=== PATIENT | male | born 2000 | race Caucasian/White ===

== ENCOUNTER 2018-02-08 10:32 | Inpatient (IN) ==
[2018-02-08] MEDS ORDERED: Morphine Inj 4 MG/ML Vial IV.PUSH ONE (11:15)
--- NOTE | 2018-02-08 11:24 | ED ---
HPI General Chief Complaint: Respiratory Symptoms Stated Complaint: Medical Complaint Time Seen by Provider: 02/08/18 11:14 Source: patient Mode of arrival: ambulatory Limitations: no limitations History of Present Illness HPI narrative: The patient is a 17-year old -[place] male who presents to the emergency department after he obtained an outpatient chest x-ray for left -sided chest pain that revealed a pneumothorax. The patient does play football for [employer] and played on Thursday. The patient cannot recall any significant trauma to the left side of the chest wall at that time and went to bed Thursday night feeling well. However, the patient awakened Thursday morning and developed acute, sudden onset left-sided chest pain. The chest pain is nonradiating, sharp, worse with inspiration, and and minimally alleviated at rest. It was at home again, there was no air travel after the football game. He denies any history of previous pneumothorax or known connective tissue disorders. The patient was advised to come to the emergency department immediately by radiology for chest tube placement. MD complaint: Reports chest pain STEMI Alert: No Onset (ago): day(s) Duration: intermittent Onset: other Pain location: Reports left chest Severity: moderate Severity scale (1-10): 5 Quality: Reports sharp Pain radiation: Reports none Relieving factors: nothing Exacerbating factors: inspiration Treatments prior to arrival chest pain: Reports none Related Data Home Medications Medication Instructions Recorded Confirmed No Known Home Medications 02/08/18 02/08/18 Allergies Allergy/AdvReac Type Severity Reaction Status Date / Time Penicillins Allergy unk Verified 02/08/18 10:53 nickel AdvReac unk Verified 02/08/18 10:53 Review of Systems ROS: all other systems reviewed are negative [facility] Medical History Medical History Patient denies medical problems (Acute) Surgical History Surgical History History of repair of ACL (Acute) Social History Social History Substance History: No History of Abuse Smoking Status: Never smoker How Often Do You Have a Drink Containing Alcohol: Never Recent Travel in [facility] within the Last 8 Weeks: No Recent Out of Country Travel within the Last 8 Weeks: No Immunization History Tetanus Immunization: >5 Years Exam Narrative Exam Narrative: GENERAL: Awake, alert, pleasant 17-year-old male who appears his stated age and is in no acute respiratory distress. SKIN: Focused skin assessment warm/dry. HEAD: Atraumatic. Normocephalic. EYES: Pupils equal and round. No scleral icterus. No injection or drainage. ENT: No nasal bleeding or discharge. Mucous membranes pink and moist. NECK: Trachea midline. No JVD. CARDIOVASCULAR: Regular rate and rhythm. No murmur appreciated. Heart rate in the 90s. RESPIRATORY: No accessory muscle use. Clear to auscultation. Minimally diminished breath sounds on the left lateral chest wall. GASTROINTESTINAL: Abdomen soft, non-tender, nondistended. MUSCULOSKELETAL: No obvious deformities. No clubbing. No cyanosis. No edema. NEUROLOGICAL: Awake and alert. No obvious cranial nerve deficits. Motor grossly within normal limits. Normal speech. Nonfocal. PSYCHIATRIC: Appropriate mood and affect; insight and judgment normal. Procedures Chest Tube Chest Tube 1: Chest Tube Location: Mid-Axillary Chest Size of Tube (cm): 10 Chest Tube Procedure: Yes betadine prep Tube Sutured to Skin: Yes Sterile Dressing Applied: Yes Anesthesia: 1% Lidocaine Volume anesthetic (mL): 15 Incision made with: #11 blade [place] of Air [place]: Yes Tube Drainage: blood Amount of initial drainage (mL): 15 Post Procedure CXR?: Yes Patient Tolerated Procedure: Yes Post Procedure: sutured to skin and sterile dressing applied Procedural Sedation Indications: other (chest tube placement) ASA Class: ASA 1 Normal Healthy Patient Preparation: classroom monitor applied, pulse oximeter, capnometry used, supplemental O2 applied, suction/airway equipment at bedside and IV secured IV Propofol Dose (mgs): 100 Patient Tolerated Procedure: well Complications: none Ultrasound POC Ultrasound Procedure: I placed a 20-gauge, 1.88 inch ultrasound-guided IV in the volar aspect of the right forearm under ultrasound guidance using a linear probe. There was good blood return and the IV fluid easily. There were no obvious complications. The patient tolerated the procedure without difficulty. Course Initial Documented Vital Signs Temperature 98.8 F 02/08/18 10:38 Pulse Rate 81 02/08/18 10:38 Respiratory Rate 16 02/08/18 10:38 Blood Pressure 127/58 L 02/08/18 10:38 Pulse Oximetry 98 02/08/18 10:38 Last Documented Vital Signs Temperature 98.8 F 02/08/18 10:38 Pulse Rate 64 02/08/18 12:01 Respiratory Rate 22 02/08/18 12:01 Blood Pressure 109/56 L 02/08/18 12:01 Pulse Oximetry 99 02/08/18 12:01 Medical Decision Making MDM Narrative Medical decision making narrative: IV was established and the patient was placed on cardiac telemetry monitoring and continuous pulse oximetry monitoring. The patient's outpatient chest x-ray was evaluated, the patient did have a pneumothorax with greater than 2 cm between the apices and the lung, therefore, decision to place a pigtail catheter was made. I discussed the risk and benefits with the patient at bedside. He agrees to the procedure. The patient was placed on IV fluids and administer morphine and Zofran initially for his symptoms and then propofol for conscious sedation while the chest tube was placed. The patient underwent conscious sedation with 100 mg of propofol, respiratory and nursing staff were present at bedside. A 10 [place] pigtail catheter was placed in the lateral inferior midline of the chest wall secondary to the musculature of the young healthy individual. The pigtail went in easily , approximately 15 mL's of bleeding was noted after the initial incision with a #11 blade. The chest tube was placed to suction, chest x-ray was obtained and the lung was reinflated,, the chest tube was riding low and posterior to the heart. I discussed the patient with the radiologist, Dr. Jackman, who states the lung is reinflated and the chest tube could be Maintain As Needed as initially the lung is reinflated, may need readjustment if lung collapse is once again. Therefore, the on-call medical service was paged for admission and pulmonology was paged for consultation. I discussed the patient with Dr. Naidu who will follow the patient for pulmonology. Medical Screen Exam Complete: Yes Emergency Medical Condition: Yes Differential Diagnosis Differential Diagnosis: Differential diagnosis includes pneumothorax, hemothorax , fractured rib, connective tissue disorder. Imaging Data Radiologist's impression: Chest X-Ray 02/08/18 12:04 CONCLUSION: 1. Left-sided chest tube in the medial inferior left hemithorax with interval resolution of left-sided pneumothorax. 2. Minimal atelectasis in the left midlung. Discharge Plan Discharge Disposition Patient Disposition: 30 Still Patient Discharge Condition Condition: Stable Discharge Details Diagnosis: Pneumothorax Physicians Team ED Provider: Hung Todd Primary Care Provider: Blas Rosenthal III Attending Provider: Ilya Guerrero ED Status: Admitted Patient
[2018-02-08] MEDS: Sod Chloride 0.9% Inj 1,000 ML IV.CONT SCH ×2 (11:36→16:19)
[2018-02-08] MEDS ORDERED: Lidocaine 1% Inj 50 ML Vial ONE (11:51)
--- NOTE | 2018-02-08 12:25 | XR ---
EXAM DATE: 02/08/2018 12:04 PM EDT AGE/SEX: 17 years / Male INDICATIONS: Post left side chest tube placement. CLINICAL DATA: This is the patient's initial encounter. Patient reports that signs and symptoms have been present for 1 day and indicates a pain score of Nonresponsive. MEDICAL/SURGICAL HISTORY: None. None. COMPARISON: [facility], XR CHEST PA AND LAT, 02/08/2018. . FINDINGS: Interval placement of left-sided chest tube with tip in the medial inferior left hemithorax. Resoluti on of previously noted left-sided pneumothorax. Minimal apical opacity in the left lung consistent wi th atelectasis. Cardiomegaly mediastinal contours are stable. Remainder of the exam is unchanged. CONCLUSION: 1. Left-sided chest tube in the medial inferior left hemithorax with interval resolution of left-oscar ed pneumothorax. 2. Minimal atelectasis in the left midlung. Electronically signed by: Pa Orellana MD 02/08/2018 12:24 PM EDT
--- NOTE | 2018-02-08 12:43 | P.HPFP ---
History of Present Illness Primary Care Physician: Blas Rosenthal III, MD <Ilya Guerrero - 02/08/18 16:22> Blas Rosenthal III, MD <OpalElham N - 02/08/18 12:43> History of Present Illness: 17-year-old male presenting to the emergency department for treatment of a spontaneous tension pneumothorax. He was in his usual state of health when he woke up this morning with a sharp pain in his left chest associated with shortness of breath. Pain was worse with inhaling deeply. 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 He denies any pain while playing football or hit that caused significant pain. He went to the athletic training room this morning complaining of the shortness of breath, a stat chest x-ray showed a spontaneous tension pneumothorax and he went to the emergency department for management. <Ilya Guerrero - 02/08/18 16:22> 17 y/o M presenting to the ED with left sided cehst pain. Plays football for [employer]. Does not recall any significant trauma. Per patient history: "I had a game Thursday and played it. [place] fine after." Thursday morning, he woke up and felt a pain in his chest and shoulder. Couldn't inhale deeply at all. Went to urgent care and was told he had "a lung catching. " Was told to monitor it and come back if it worsens. Went to athletic center at school and felt winded after 5 minutes on an exercise bike, which he found unusual. Pain was returned as well, so he notified staff trainer who told him he wasn' t allowed to lift weights the rest of the afternoon. Woke up this morning and still felt the same symptoms. Contacted the team physician, who did a CXR and told patient to go to the ER. No recent air travel or diving, hx of penumothorax , or hx of lung disease. Outpatient CXR showed pneumothorax w/greater than 2 cm rim of air. Pigtail catheter was placed, followed by chest tube. CXR confirmed resolution of pneumothorax and proper placement. Patient states that his chest feels sore where the chest tube is placed but otherwise notices symptoms have resolved and he feels that he can breathe better. Received morphine x1. No family history of pneumothorax or lung disease. No smoking history. <Elham Joseph 02/08/18 14:48> - Diagnosis (1) Pneumothorax (2) Nutrition, metabolism, and development symptoms (3) DVT prophylaxis <Ilya Guerrero 02/08/18 16:22> (1) Pneumothorax (2) Nutrition, metabolism, and development symptoms (3) DVT prophylaxis <Elham Joseph 02/08/18 14:22> Inpatient Certification: I certify that the inpatient services were ordered in accordance with Medicare regulations governing the order. This includes certification that hospital inpatient services are reasonable and necessary and in the case of services not specified as inpatient-only under 42 CFR 419.22(n), that they are appropriately provided as inpatient services in accordance to with the 2-midnight benchmark under 43 CFR 412.3(e) <Ilya Guerrero 02/08/18 16:22> Review of Systems Constitutional: Denies fever(s), Denies lack of energy <Elham Joseph 14:05> Eyes: Denies blurry vision, Denies dry eyes <Elham Joseph 02/08/18 14:05> Ears, Nose, Mouth, and Throat: Denies post nasal drip, Denies sore throat < Elham Joseph 02/08/18 14:05> Cardiovascular: Denies chest pain, Denies leg swelling <Elham Joseph 14:05> Respiratory: Denies cough, Denies pain on inspiration, Denies pain with cough <Elham Joseph 02/08/18 14:05> Gastrointestinal: Denies abdominal pain, Denies vomiting <Elham Joseph 14:05> Genitourinary: Denies urinary frequency, Denies urinary urgency <Elham Joseph 02/08/18 14:05> Musculoskeletal: Denies abnormal walking, Denies limited joint movement, Denies muscle weakness <AbiElham greene 02/08/18 14:05> Neurologic: Denies frequent falls, Denies loss of vision, Denies seizure-like activity <Elham Joseph 02/08/18 14:05> Psychiatric: Denies anxiety, Denies depression <Abid,Elham N 02/08/18 14:05 > Hematologic/Lymphatic: Denies easy bleeding, Denies easy bruising <Elham Joseph 02/08/18 14:05> PMFSH - History History Provided By: Patient <Elham Joseph 02/08/18 12:43> - Medical History Medical History: Medical History (Last Updated 02/08/18 @ 10:53 by Lisha Balderas, RN) Patient denies medical problems <YolandaIlya uribe 02/08/18 16:22> Medical History (Last Updated 02/08/18 @ 10:53 by Lisha Balderas, [email or web address]) Patient denies medical problems <Elham Joseph 02/08/18 12:43> - Surgical History Surgical History: Surgical History (Last Updated 02/08/18 @ 14:04 by Elham Joseph MD, R2) History of repair of ACL <Ilya Guerrero 02/08/18 16:22> Surgical History (Last Updated 02/08/18 @ 14:04 by Elham Joseph MD, R2) History of repair of ACL <OpalElham Leticia 02/08/18 14:48> - Tobacco History Smoking Status: Never smoker <Elham Joseph 02/08/18 12:43> - Alcohol History How Often Do You Have a Drink Containing Alcohol: Never <Elham Joseph 02/08 12:43> - Substance Use History Substance History: No History of Abuse <Luz MariajcElham Kelly 02/08/18 12:43> - Travel History Recent Travel in the [place] Within the Last 8 Weeks: No <Luz MariajcElham Kelly 12:43> Recent Travel Out of the Country Within the Last 8 Weeks: No <Luz MariajcElham 02/08/18 12:43> - Immunization History Tetanus Immunization: >5 Years <Luz MariajcElham Leticia 02/08/18 12:43> Medications and Allergies Allergies Allergy/AdvReac Type Severity Reaction Status Date / Time Penicillins Allergy unk Verified 02/08/18 10:53 nickel AdvReac unk Verified 02/08/18 10:53 <Ilya Guerrero 02/08/18 16:22> Home Medications Medication Instructions Recorded Confirmed Type No Known Home Medications 02/08/18 02/08/18 History <Ilya Guerrero - 02/08/18 16:22> Active Medications: Active Medications Acetaminophen (Tylenol) 650 mg PO Q4H PRN PRN Reason: Temp > 100.4 Al Hydroxide/Mg Hydroxide (Milk Of Magnesia Liq) 30 ml PO Q12H PRN PRN Reason: Mild Constipation Albuterol (Duoneb Neb (Prn)) 1 ampul NEB Q2HR NEB PRN PRN Reason: DYSPNEA Albuterol (Duoneb Neb (Joanie)) 1 ampul NEB Q6HR NEB JOANIE Bisacodyl (Dulcolax Supp) 10 mg RECTAL DAILY PRN PRN Reason: SEVERE CONSITIPATION Sodium Chloride (Ns Inj) 1,000 mls @ 100 mls/hr IV.CONT .Q10H JOANIE Last Infusion: 02/08/18 15:32 Dose: Infused Lactulose (Lactulose Liq) 30 ml PO DAILY PRN PRN Reason: SEVERE CONSITIPATION Ondansetron HCl (Zofran Inj) 4 mg IV.PUSH Q6H PRN PRN Reason: NAUSEA OR VOMITING Sennosides (Senokot) 17.2 mg PO Q12H PRN PRN Reason: Moderate Constipation <Ilya Guerrero - 02/08/18 16:22> Active Medications Sodium Chloride (Ns Inj) 1,000 mls @ 100 mls/hr IV.CONT .Q10H JOANIE Last Admin: 02/08/18 11:36 Dose: 100 mls/hr <Elham Joseph N - 02/08/18 12:43> Exam Vital signs: Vital Signs 02/08/18 10:38 02/08/18 10:53 02/08/18 10:56 Temperature 98.8 F Pulse Rate 81 80 Respiratory Rate 16 17 Blood Pressure 127/58 L 145/77 H Pulse Oximetry 98 100 100 02/08/18 11:41 02/08/18 11:57 02/08/18 12:01 Temperature Pulse Rate 80 68 64 Respiratory Rate 18 32 H 22 Blood Pressure 137/64 121/64 109/56 L Pulse Oximetry 100 95 99 02/08/18 13:35 02/08/18 14:36 02/08/18 15:35 Temperature Pulse Rate 57 L 67 Respiratory Rate 12 16 12 Blood Pressure 140/84 136/68 Pulse Oximetry 100 100 98 Intake & Output 02/07/18 02/08/18 02/08/18 18:59 06:59 18:59 Intake Total 1000 / 1000 Balance 1000 / 1000 Weight 97.522 kg Intake: IV 1000 / 1000 NS Inj 1,000 ML @ 100 mls/hr IV 1000 / 1000 .CONT .Q10H JOANIE Rx#:[id number] Other: Weight On Admission 97.522 kg <Ilya Guerrero - 02/08/18 16:22> Vital Signs 02/08/18 10:38 02/08/18 10:53 02/08/18 10:56 Temperature 98.8 F Pulse Rate 81 80 Respiratory Rate 16 17 Blood Pressure 127/58 L 145/77 H Pulse Oximetry 98 100 100 02/08/18 11:41 02/08/18 11:57 02/08/18 12:01 Temperature Pulse Rate 80 68 64 Respiratory Rate 18 32 H 22 Blood Pressure 137/64 121/64 109/56 L Pulse Oximetry 100 95 99 Intake & Output 02/07/18 02/08/18 02/08/18 18:59 06:59 18:59 Weight 97.522 kg <Elham Joseph - 02/08/18 12:43> Narrative: General: Athletic and healthy-appearing young -[place] male CV: Regular rate and rhythm without murmur Pulmonary: Clear to auscultation bilaterally with good air movement in all lung michel. Pigtail catheter chest tube in lateral chest wall without any significant drainage or leakage. Catheter is hooked up to wall suction. Abdomen: Soft, nontender, nondistended <Ilya Guerrero - 02/08/18 16:22> GENERAL: 17 y/o young man resting in bed in no acute distress. SKIN: Cold and dry. HEAD: Atraumatic. Normocephalic. EYES: Normal EOM. ENT: No nasal bleeding or discharge. Mucous membranes pink and moist. NECK: Trachea midline. No JVD. CARDIOVASCULAR: Regular rate and rhythm. RESPIRATORY: No accessory muscle use. Clear to auscultation. Breath sounds equal bilaterally. Chest tube in place at the left side of the chest, draining < 10ml of bright red fluid. GASTROINTESTINAL: Abdomen soft, non-tender, nondistended. MUSCULOSKELETAL: Extremities without clubbing, cyanosis, or edema. No obvious deformities. NEUROLOGICAL: Awake and alert. No obvious cranial nerve deficits. Motor grossly within normal limits. PSYCHIATRIC: Appropriate mood and affect; insight and judgment normal. <Elham Joseph - 02/08/18 14:48> Results - Imaging Impressions Chest X-Ray 02/08/18 12:04 CONCLUSION: 1. Left-sided chest tube in the medial inferior left hemithorax with interval resolution of left-sided pneumothorax. 2. Minimal atelectasis in the left midlung. <Ilya Guerrero - 02/08/18 16:22> Impressions Chest X-Ray 02/08/18 12:04 CONCLUSION: 1. Left-sided chest tube in the medial inferior left hemithorax with interval resolution of left-sided pneumothorax. 2. Minimal atelectasis in the left midlung. <Elham Joseph 02/08/18 12:43> Caprini VTE Risk Assessment Caprini VTE Risk Assessment: No/Low Risk (score <= 1) <Elham Joseph - 14:48> Caprini Risk Assessment Model: Point Value = 1 Point Value = 2 Point Value = 3 Point Value = 5 Age 41-60 Minor surgery BMI > 25 kg/m2 Swollen legs Varicose veins or History of unexplained or recurrent spontaneous Oral contraceptives or hormone replacement Sepsis (< 1 month) Serious lung disease, including pneumonia (< 1 month) Abnormal pulmonary function Acute myocardial infarction Congestive heart failure (< 1 month) History of inflammatory bowel disease Medical patient at bed rest Age 61-74 Arthroscopic surgery Major open surgery (> 45 min) Laparoscopic surgery (> 45 min) Malignancy Confined to bed (> 72 hours) Immobilizing plaster cast Central venous access Age >= 75 History of VTE Family history of VTE Factor V Leiden Prothrombin [id number] Lupus anticoagulant Anticardiolipin antibodies Elevated serum homocysteine Heparin-induced thrombocytopenia Other congenital or acquired thrombophilia Stroke (< 1 month) Elective arthroplasty Hip, pelvis, or leg fracture Acute spinal cord injury (< 1 month) <Ilya Guerrero 02/08/18 16:22> Point Value = 1 Point Value = 2 Point Value = 3 Point Value = 5 Age 41-60 Minor surgery BMI > 25 kg/m2 Swollen legs Varicose veins or History of unexplained or recurrent spontaneous Oral contraceptives or hormone replacement Sepsis (< 1 month) Serious lung disease, including pneumonia (< 1 month) Abnormal pulmonary function Acute myocardial infarction Congestive heart failure (< 1 month) History of inflammatory bowel disease Medical patient at bed rest Age 61-74 Arthroscopic surgery Major open surgery (> 45 min) Laparoscopic surgery (> 45 min) Malignancy Confined to bed (> 72 hours) Immobilizing plaster cast Central venous access Age >= 75 History of VTE Family history of VTE Factor V Leiden Prothrombin [id number] Lupus anticoagulant Anticardiolipin antibodies Elevated serum homocysteine Heparin-induced thrombocytopenia Other congenital or acquired thrombophilia Stroke (< 1 month) Elective arthroplasty Hip, pelvis, or leg fracture Acute spinal cord injury (< 1 month) <Elham Joseph - 02/08/18 12:43> Prophylaxis Regimen: Total Risk Factor Score Risk Level Prophylaxis Regimen 0-1 Low Early ambulation 2 Moderate Order ONE of the following: *Sequential Compression Device (SCD) *Heparin 5000 units SQ BID 3-4 Higher Order ONE of the following medications: *Heparin 5000 units SQ TID *Enoxaparin/Lovenox 40 mg SQ daily (WT < 150 kg, CrCl > 30 mL/min) *Enoxaparin/Lovenox 30 mg SQ daily (WT < 150 kg, CrCl > 10-29 mL/min) *Enoxaparin/Lovenox 30 mg SQ BID (WT < 150 kg, CrCl > 30 mL/min) AND/OR *Sequential Compression Device (SCD) 5 or more Highest Order ONE of the following medications: *Heparin 5000 units SQ TID (Preferred with Epidurals) *Enoxaparin/Lovenox 40 mg SQ daily (WT < 150 kg, CrCl > 30 mL/min) *Enoxaparin/Lovenox 30 mg SQ daily (WT < 150 kg, CrCl > 10-29 mL/min) *Enoxaparin/Lovenox 30 mg SQ BID (WT < 150 kg, CrCl > 30 mL/min) AND *Sequential Compression Device (SCD) <Ilya Guerrero - 02/08/18 16:22> Total Risk Factor Score Risk Level Prophylaxis Regimen 0-1 Low Early ambulation 2 Moderate Order ONE of the following: *Sequential Compression Device (SCD) *Heparin 5000 units SQ BID 3-4 Higher Order ONE of the following medications: *Heparin 5000 units SQ TID *Enoxaparin/Lovenox 40 mg SQ daily (WT < 150 kg, CrCl > 30 mL/min) *Enoxaparin/Lovenox 30 mg SQ daily (WT < 150 kg, CrCl > 10-29 mL/min) *Enoxaparin/Lovenox 30 mg SQ BID (WT < 150 kg, CrCl > 30 mL/min) AND/OR *Sequential Compression Device (SCD) 5 or more Highest Order ONE of the following medications: *Heparin 5000 units SQ TID (Preferred with Epidurals) *Enoxaparin/Lovenox 40 mg SQ daily (WT < 150 kg, CrCl > 30 mL/min) *Enoxaparin/Lovenox 30 mg SQ daily (WT < 150 kg, CrCl > 10-29 mL/min) *Enoxaparin/Lovenox 30 mg SQ BID (WT < 150 kg, CrCl > 30 mL/min) AND *Sequential Compression Device (SCD) <Elham Joseph - 02/08/18 12:43> Assessment and Plan - Assessment (1) Pneumothorax Code(s): J93.9 - Pneumothorax, unspecified Status: Acute Plan: Spontaneous tension pneumothorax in a young healthy male Status post chest tube placement with subsequent resolution of pneumothorax via repeat chest x-ray Pulmonology consulted -Continue supplemental oxygen to maintain O2 saturations above 92% -Duo nebs every 6 hours +2 hours as needed for shortness of breath -Repeat chest x-ray in 24 hours (2) Nutrition, metabolism, and development symptoms Code(s): R63.8 - Other symptoms and signs concerning food and fluid intake Status: Acute (3) DVT prophylaxis Status: Acute <Ilya Guerrero - 02/08/18 16:22> (1) Pneumothorax Code(s): J93.9 - Pneumothorax, unspecified Status: Acute Plan: 1st occurrence of primary spon't pneumothorax CXR shows minimal atelactasis in the left lung but reolution of left sided pneumothorax post chest tube insertion. Pulmonology consulted con't O2 to maintain saturations above 92%. Will receive Duonebs Q6H plus 2 hrs PRN for SOB Repeat CXR after 24 hrs Consider thoracoscopy, corrie in the case of recurrence (2) Nutrition, metabolism, and development symptoms Code(s): R63.8 - Other symptoms and signs concerning food and fluid intake Status: Acute Plan: Fluids: None Electrolytes: None Nutrition: Reg diet GI prophy: None (3) DVT prophylaxis Status: Acute Plan: None indicated, encourage ambulation <Elham Joseph N - 02/08/18 14:22> - Assessment and Plan Dispo: 48-72 hrs Discussed w/ED physician Dr. Todd <Elham Joseph N - 02/08/18 14:48> <Elham Joseph N - Last Filed: 02/08/18 14:22> (1) Pneumothorax Qualifiers: Pneumothorax type: unspecified pneumothorax Qualified Code(s): J93.9 - Pneumothorax, unspecified <Ilya Guerrero - Last Filed: 02/08/18 16:22> (1) Pneumothorax Qualifiers: Pneumothorax type: unspecified pneumothorax Qualified Code(s): J93.9 - Pneumothorax, unspecified <Elham Joseph N - Last Filed: 02/08/18 14:22> (1) Pneumothorax Qualifiers: Pneumothorax type: unspecified pneumothorax Qualified Code(s): J93.9 - Pneumothorax, unspecified <Ilya Guerrero - Last Filed: 02/08/18 16:22> (1) Pneumothorax Qualifiers: Pneumothorax type: unspecified pneumothorax Qualified Code(s): J93.9 - Pneumothorax, unspecified
[2018-02-08] MEDS ORDERED: Bisacodyl 10 MG Supp RECTAL PRN (14:13)
[2018-02-08] MEDS ORDERED: Acetaminophen 325 MG Tablet PO PRN (14:13)
--- NOTE | 2018-02-08 14:15 | MB ---
cc: Jason Woodward MD DATE: 02/08/2018 HISTORY OF PRESENT ILLNESS: The patient is a 17-year-old male without a past medical history who presented to [facility] ED after he obtained an outpatient chest x-ray earlier today for left-sided chest pain that showed pneumothorax. The patient states that he played football on Thursday and he could not recall any significant trauma to the left side of his chest at the time and then when he woke up Thursday, he developed acute sudden onset left-sided chest pain, nonradiating. He denies any prior history of pneumothorax or any known connective tissue disorders. The patient does not take any medications at home. In the ER, the patient underwent a chest tube placement and chest x-ray post-procedure showed the left-sided chest tube in the medial inferior left hemithorax with interval resolution of the left-sided pneumothorax. Minimal atelectasis in the left mid lung seen. The patient is on Lortab. The patient states that his chest pain overall is much better now. He described it as a soreness type. He denies any cough or constitutional symptoms. In addition, he denies any orthopnea, PND, edema of the lower extremities and no history of GI symptoms. PAST MEDICAL HISTORY: Unremarkable. PAST SURGICAL HISTORY: Surgery on the left knee for repair of ACL. ALLERGIES: PENICILLIN AND NICKEL. SIDE EFFECTS INCLUDE RASH AND HIVES. FAMILY HISTORY: Noncontributing to present illness. MEDICATIONS AT HOME: None. SOCIAL HISTORY: Nonsmoker, nondrinker. REVIEW OF SYSTEMS: Unremarkable. PHYSICAL EXAMINATION: GENERAL: A 17-year-old male lying in bed, in no acute respiratory distress. VITAL SIGNS: Afebrile, temperature 98.8, pulse of 64, respiratory rate of 12, blood pressure 140/84, saturation 100%. HEENT: Atraumatic, normocephalic. Pupils are equal, round, reactive to light and accommodation. Extraocular muscles intact. Conjunctivae pink. Nonicteric sclerae. Oral mucosa within normal. NECK: Supple. No JVD, adenopathy or thyromegaly. Trachea in the midline. CARDIOVASCULAR: Regular rate and rhythm. Normal S1, S2. No murmurs, rubs or gallops noted. PULMONARY: Bilateral equal air entry. No rales or wheezing. ABDOMEN: Soft, nontender, nondistended, positive bowel sounds. EXTREMITIES: No cyanosis, clubbing, edema. NEUROLOGIC: No focal sensory deficit. LABORATORY DATA: Labs not performed. RADIOGRAPHIC STUDIES: Chest x-ray post-pigtail catheter insertion showed resolution of left-sided pneumothorax, left chest tube in the medial inferior left hemithorax, minimal atelectasis left mid lung. ASSESSMENT AND PLAN: 1. Left spontaneous pneumothorax, status post pigtail catheter insertion. 2. Minimal atelectasis in the left mid lung. RECOMMENDATIONS: 1. Continue with oxygen and maintain saturations above 92%. We will place on bronchodilators in the form of DuoNeb every 6 hours plus every 2 hours p.r.n. for shortness of breath. 2. The patient is status post left-sided pigtail catheter insertion with a chest x-ray post-procedure showing resolution of left-sided pneumothorax. We will continue with 20 cm wall suction and repeat a chest x-ray in 24 hours. 3. Discussed with the patient and his mother at the bedside. 4. Further recommendations will be based on hospital course. MD GENE Roy/dimitrios , 01:42 PM , 01:53 PM [email or web address]
[2018-02-09] MEDS: Sod Chloride 0.9% Inj 1,000 ML IV.CONT SCH ×3 (02:19→18:25)
--- NOTE | 2018-02-09 06:42 | XR ---
EXAM DATE: 02/09/2018 12:00 AM EDT AGE/SEX: 17 years / Male INDICATIONS: Follow up left side pneumothorax, short of breath CLINICAL DATA: This is the patient's subsequent encounter. Patient reports that signs and symptoms h ave been present for 2 days and indicates a pain score of 5/10. MEDICAL/SURGICAL HISTORY: . spontaneous pneumothorax Chest tube, left. COMPARISON: [facility] – [place]ST 1V SINGLE AP, 02/08/2018. . FINDINGS: There is a left chest tube. There is a moderate left pneumothorax measuring up to 1.8 cm seen on the left side. There does appear to be some shifting of the heart towards the right. The lungs are otherw ise clear. CONCLUSION: Moderate left pneumothorax now seen with a left-sided pigtail catheter in place. This information was relayed to the charge nurse by telephone. Electronically signed by: Papa Yuan MD 02/09/2018 6:40 AM EDT
--- NOTE | 2018-02-09 08:33 | P.PNFP ---
Subjective Interval history: Patient seen and initially examined at 7:15am this morning after receiving call from radiologist that there was a slight mediastinal shift with expansion of the L pneumothorax since last night. Pigtail catheter was placed in the ED yesterday on admission. Patient complains of minimal discomfort in the L shoulder, likely due to pleural irritation. He notes no chest pain, shortness of breath, trouble taking a deep breath, lightheadedness or dizziness. He has has O2 saturations of 96-100% overnight and is currently on 2L NC. No obvious air leak from the pigtail catheter and chest tube suction apparatus. Call out to pulmonology for recommendations. Update 7:30am: Spoke to Dr. Naidu, who is aware of patient's case, and recommended that pigtail catheter be replaced with chest tube by IR and that patient remain on 40 % of wall suction. STAT chest tube replacement by IR ordered. Nursing staff updated on plan. <Grace Robison - 02/09/18 15:39> Results - Imaging Impressions Chest CT 02/09/18 00:00 CONCLUSION: Left apical pigtail thoracostomy tube in good position with minimal residual left pneumothorax and mild left lung atelectasis. Chest Tube Insertion 02/09/18 00:00 CONCLUSION: 1. Uncomplicated left chest tube placement as above. Chest X-Ray 02/09/18 00:00 CONCLUSION: Moderate left pneumothorax now seen with a left-sided pigtail catheter in place. This information was relayed to the charge nurse by telephone. Chest X-Ray 02/09/18 09:00 CONCLUSION: Persistent and unchanged left-sided pneumothorax. Chest X-Ray 02/09/18 11:25 CONCLUSION: No pneumothorax <Ilya Guerrero - 02/09/18 20:00> Impressions Chest X-Ray 02/08/18 12:04 CONCLUSION: 1. Left-sided chest tube in the medial inferior left hemithorax with interval resolution of left-sided pneumothorax. 2. Minimal atelectasis in the left midlung. Chest X-Ray 02/09/18 00:00 CONCLUSION: Moderate left pneumothorax now seen with a left-sided pigtail catheter in place. This information was relayed to the charge nurse by telephone. <Grace Robison - 02/09/18 08:33> Physical Exam Vital signs: Vital Signs 02/09/18 00:00 02/09/18 00:30 02/09/18 03:30 Temperature 98.1 F Pulse Rate 70 91 H Respiratory Rate 18 17 Blood Pressure 116/59 L Pulse Oximetry 98 97 02/09/18 04:00 02/09/18 07:59 02/09/18 08:00 Temperature 97.9 F 98.2 F 98.2 F Pulse Rate 64 81 81 Respiratory Rate 19 18 18 Blood Pressure 118/60 139/67 139/67 Pulse Oximetry 96 99 99 02/09/18 08:45 02/09/18 11:30 02/09/18 13:14 Temperature 99.0 F 97.9 F Pulse Rate 83 98 H 61 Respiratory Rate 18 18 17 Blood Pressure 126/71 127/80 Pulse Oximetry 98 94 L 100 02/09/18 16:00 02/09/18 16:31 Temperature 98.9 F Pulse Rate 68 86 Respiratory Rate 18 18 Blood Pressure 124/67 Pulse Oximetry 99 Intake & Output 02/09/18 02/09/18 02/10/18 06:59 18:59 06:59 Intake Total 1420 / 1420 1750 / 1750 Output Total 1512 / 1512 885 / 885 Balance -92 / -92 865 / 865 Weight 98.8 kg Intake: IV 1000 / 1000 1000 / 1000 NS Inj 1,000 ML @ 100 mls/hr IV 1000 / 1000 1000 / 1000 .CONT .Q10H [facility] Rx#:[id number] Oral 420 / 420 750 / 750 Output: Urine 1500 / 1500 850 / 850 Chest Tube Drainage 35 / 35 Left Anterior 12 12 Left Upper 35 / 35 Other: # Voids 2 Date of Last Bowel Movement 02/07/18 # Bowel Movements 0 <Ilya Guerrero - 02/09/18 20:00> Vital Signs 02/08/18 10:38 02/08/18 10:53 02/08/18 10:56 Temperature 98.8 F Pulse Rate 81 80 Respiratory Rate 16 17 Blood Pressure 127/58 L 145/77 H Pulse Oximetry 98 100 100 02/08/18 11:41 02/08/18 11:57 02/08/18 12:01 Temperature Pulse Rate 80 68 64 Respiratory Rate 18 32 H 22 Blood Pressure 137/64 121/64 109/56 L Pulse Oximetry 100 95 99 02/08/18 13:35 02/08/18 14:36 02/08/18 15:35 Temperature Pulse Rate 57 L 67 Respiratory Rate 12 16 12 Blood Pressure 140/84 136/68 Pulse Oximetry 100 100 98 02/08/18 16:00 02/08/18 17:25 02/08/18 19:42 Temperature 97.9 F Pulse Rate 59 L 89 74 Respiratory Rate 17 18 18 Blood Pressure 135/79 Pulse Oximetry 99 02/08/18 19:46 02/08/18 20:00 02/09/18 00:00 Temperature 98.3 F 98.1 F Pulse Rate 66 70 Respiratory Rate 18 18 Blood Pressure 98/51 L 116/59 L Pulse Oximetry 98 98 98 02/09/18 00:30 02/09/18 03:30 02/09/18 04:00 Temperature 97.9 F Pulse Rate 91 H 64 Respiratory Rate 17 19 Blood Pressure 118/60 Pulse Oximetry 97 96 02/09/18 07:59 Temperature 98.2 F Pulse Rate 81 Respiratory Rate 18 Blood Pressure 139/67 Pulse Oximetry 99 Intake & Output 02/08/18 02/09/18 02/09/18 18:59 06:59 18:59 Intake Total 1350 / 1350 1420 / 1420 Output Total 1512 / 1512 Balance 1350 / 1350 -92 / -92 Weight 97.522 kg 98.8 kg Intake: IV 1000 / 1000 1000 / 1000 NS Inj 1,000 ML @ 100 mls/hr IV 1000 / 1000 1000 / 1000 .CONT .Q10H [facility] Rx#:[id number] Oral 350 / 350 420 / 420 Output: Urine 1500 / 1500 Chest Tube Drainage Left Anterior Other: # Voids 2 2 Date of Last Bowel Movement 02/07/18 # Bowel Movements 0 Weight On Admission 97.522 kg <Grace Robison 02/09/18 08:33> Narrative: General: 17 year old, healthy-appearing male in no acute respiratory distress. CV: Regular rate and rhythm without murmur Pulmonary: Clear to auscultation bilaterally. Pigtail catheter chest tube in lateral chest wall. No notable bleeding, drainage or leakage. Catheter is hooked up to wall suction. Abdomen: Soft, nontender, nondistended MSK: No leg edema or calf tenderness. <Grace Robison 02/09/18 15:39> Assessment and Plan - Assessment (1) Pneumothorax Code(s): J93.9 - Pneumothorax, unspecified Status: Acute (2) Nutrition, metabolism, and development symptoms Code(s): R63.8 - Other symptoms and signs concerning food and fluid intake Status: Acute (3) DVT prophylaxis Status: Acute <Ilya Guerrero - 02/09/18 20:00> (1) Pneumothorax Code(s): J93.9 - Pneumothorax, unspecified Status: Acute Plan: Spontaneous tension pneumothorax in a young healthy male Status post chest tube placement with subsequent resolution of pneumothorax via repeat chest x-ray IR to place pigtail catheter with chest tube versus second chest tube this morning. Patient currently awaiting procedure. Pulmonology consulted -Continue supplemental oxygen to maintain O2 saturations above 92% -Duo nebs every 6 hours +2 hours as needed for shortness of breath -Repeat chest x-ray in 24 hours (2) Nutrition, metabolism, and development symptoms Code(s): R63.8 - Other symptoms and signs concerning food and fluid intake Status: Acute Plan: Fluids: None Electrolytes: None Nutrition: Reg diet GI prophy: None (3) DVT prophylaxis Status: Acute Plan: None indicated, encourage ambulation <Grace Robison - 02/09/18 15:35> - Attending Attestation Pt. examined and case discussed with resident physicians. I have read the above note and agree with the assessment and plan as discussed with me. I was involved in all medical decision making for this patient. Ilya Guerrero MD <Ilya Guerrero - 02/09/18 20:00> <Grace Robison - Last Filed: 02/09/18 15:35> (1) Pneumothorax Qualifiers: Pneumothorax type: unspecified pneumothorax Qualified Code(s): J93.9 - Pneumothorax, unspecified <Ilya Guerrero - Last Filed: 02/09/18 20:00> (1) Pneumothorax Qualifiers: Pneumothorax type: unspecified pneumothorax Qualified Code(s): J93.9 - Pneumothorax, unspecified <Grace Robison - Last Filed: 02/09/18 15:35> (1) Pneumothorax Qualifiers: Pneumothorax type: unspecified pneumothorax Qualified Code(s): J93.9 - Pneumothorax, unspecified <Ilya Guerrero - Last Filed: 02/09/18 20:00> (1) Pneumothorax Qualifiers: Pneumothorax type: unspecified pneumothorax Qualified Code(s): J93.9 - Pneumothorax, unspecified
--- NOTE | 2018-02-09 09:20 | P.PNPL ---
Subjective Interval history: Patient had CXR this morning showed left PTX measuring up to 1.8 cm seen on the left side with a left-sided pigtail catheter in place He denies any worsening SOB. c/o mild CP soreness like from insertion site. Afebrile. Physical Exam Vital signs: Vital Signs 02/08/18 10:38 02/08/18 10:53 02/08/18 10:56 Temperature 98.8 F Pulse Rate 81 80 Respiratory Rate 16 17 Blood Pressure 127/58 L 145/77 H Pulse Oximetry 98 100 100 02/08/18 11:41 02/08/18 11:57 02/08/18 12:01 Temperature Pulse Rate 80 68 64 Respiratory Rate 18 32 H 22 Blood Pressure 137/64 121/64 109/56 L Pulse Oximetry 100 95 99 02/08/18 13:35 02/08/18 14:36 02/08/18 15:35 Temperature Pulse Rate 57 L 67 Respiratory Rate 12 16 12 Blood Pressure 140/84 136/68 Pulse Oximetry 100 100 98 02/08/18 16:00 02/08/18 17:25 02/08/18 19:42 Temperature 97.9 F Pulse Rate 59 L 89 74 Respiratory Rate 17 18 18 Blood Pressure 135/79 Pulse Oximetry 99 02/08/18 19:46 02/08/18 20:00 02/09/18 00:00 Temperature 98.3 F 98.1 F Pulse Rate 66 70 Respiratory Rate 18 18 Blood Pressure 98/51 L 116/59 L Pulse Oximetry 98 98 98 02/09/18 00:30 02/09/18 03:30 02/09/18 04:00 Temperature 97.9 F Pulse Rate 91 H 64 Respiratory Rate 17 19 Blood Pressure 118/60 Pulse Oximetry 97 96 02/09/18 07:59 02/09/18 08:45 Temperature 98.2 F Pulse Rate 81 83 Respiratory Rate 18 18 Blood Pressure 139/67 Pulse Oximetry 99 98 Intake & Output 02/08/18 02/09/18 02/09/18 18:59 06:59 18:59 Intake Total 1350 / 1350 1420 / 1420 Output Total 1512 / 1512 Balance 1350 / 1350 -92 / -92 Weight 97.522 kg 98.8 kg Intake: IV 1000 / 1000 1000 / 1000 NS Inj 1,000 ML @ 100 mls/hr IV 1000 / 1000 1000 / 1000 .CONT .Q10H [facility] Rx#:[id number] Oral 350 / 350 420 / 420 Output: Urine 1500 / 1500 Chest Tube Drainage Left Anterior Other: # Voids 2 2 Date of Last Bowel Movement 02/07/18 # Bowel Movements 0 Weight On Admission 97.522 kg - Constitutional no acute distress - Routine HEENT Exam Head: Present: normocephalic, atraumatic Eye: Present: EOMI, PERRL, normal accommodation, conjunctivae pink ENT: Present: mucous membranes moist - Routine Neck Exam Present: supple, full ROM, trachea midline - Routine Respiratory Exam Present: CTA bilaterally - Routine Cardiovascular Exam Present: RRR, S1, S2 - Routine Abdominal Exam Present: soft, normoactive bowel sounds - Routine Extremities Exam Present: full ROM, pulses intact - Routine Skin Exam Present: intact - Routine Neurological Exam Present: alert, oriented X3, CN II-XII intact, moving all extremities - Routine Psychiatric Exam Present: normal affect, cooperative Assessment and Plan - Plan Imp: 1. Recurrent Left pneumothorax, status post pigtail catheter insertion. 2. Minimal atelectasis in the left mid lung. Plan Continue with oxygen and maintain sats>92%. Bronchodilators. CXR this morning showed 1.8 cm left PTX with pigtail catheter in place Increase to 40cm wall suction, IR eval discussed with Dr. Donahue (IR) plan for possible a 2nd CT insertion. Will get CT chest for further eval pulm parenchyma. Consult CTS. Discussed with patient and his mother and updated them .
--- NOTE | 2018-02-09 09:41 | XR ---
EXAM DATE: 02/09/2018 9:00 AM EDT AGE/SEX: 17 years / Male INDICATIONS: Pneumothorax. CLINICAL DATA: This is the patient's subsequent encounter. Patient reports that signs and symptoms h ave been present for 2 days and indicates a pain score of 4/10. MEDICAL/SURGICAL HISTORY: None. Chest tube, left. COMPARISON: [facility] – [place], CHEST 1V SINGLE AP, 02/09/2018. . FINDINGS: A single frontal expiratory view of the chest was performed. A persistent moderate-sized pneumothorax despite left subpulmonic chest tube on 40 cm of water. No midline shift. Right lung is clear. Heart is normal in size. CONCLUSION: Persistent and unchanged left-sided pneumothorax. Electronically signed by: Dave Resendez MD 02/09/2018 9:40 AM EDT
[2018-02-09] MEDS ORDERED: fentaNYL Citrate Inj 250 MCG/5 ML Ampul ONE (10:28)
--- NOTE | 2018-02-09 11:28 | P.RAD ---
Post Procedure Progress Note - Pre Procedure Diagnosis (1) Pneumothorax - Post Procedure Diagnosis (1) Pneumothorax - Procedure Information Procedure Date: 02/09/18 Supervising Radiologist: Dave Resendez Jr, MD Proceduralist/Assist: Willy Grubbs Estimated blood loss (mL): 0 Anesthesia: Conscious Sedation - Plan of Activity Patient to Unit: [facility]OPU Patient Condition: Good See PACS Report for procedural detail/treatment. Drainage Procedure Fluoroscopy left Chest Tube Non-Tunneled Placement Drainage: Pleurovac Findings: Persistent PTX despite single subpulmonic chest tube. Placed new tube in left apex.
--- NOTE | 2018-02-09 12:10 | XR ---
EXAM DATE: 02/09/2018 11:25 AM EDT AGE/SEX: 17 years / Male INDICATIONS: Evaluate pneumothorax. Chest tube placement. CLINICAL DATA: This is the patient's subsequent encounter. Patient reports that signs and symptoms h ave been present for 1 day and indicates a pain score of 6/10. MEDICAL/SURGICAL HISTORY: None. None. [place] [facility] [place], [place]. . FINDINGS: Interval placement of a left apical pigtail thoracostomy tube with resolution of pneumothorax.Lungs a re focally clear. No pleural effusion evident. Cardiac contours are stable. CONCLUSION: No pneumothorax Electronically signed by: Papa Landry MD 02/09/2018 12:09 PM EDT
--- NOTE | 2018-02-09 12:21 | IR ---
EXAM DATE: 02/09/2018 12:00 AM EDT AGE/SEX: 17 years / Male INDICATIONS: Patient has persistent left sided spontaneous pneumothorax despite left subpulmonic meryl st tube. New left-sided chest tube placement requested. CLINICAL DATA: This is the patient's subsequent encounter. Patient reports that signs and symptoms h ave been present for 2 days and indicates a pain score of 4/10. MEDICAL/SURGICAL HISTORY: . Pneumothorax left side. . Left knee ACL repair. COMPARISON: No prior exams available for comparison. FLUORO TIME (min): 1.13 IMAGE SERIES: 1 ACCESS SITE: SEDATION TIME (min): 30 MEDICATION(S): 2.5 mg midazolam (Versed) IV 125 mcg fentanyl (Sublimaze) IV DEVICE(S): 10 Mongolian non-locking catheter Paradis drainage catheter. . . PROCEDURE: 1. Fluoroscopically guided chest tube placement. 2. Conscious sedation with continuous EKG and oximetry monitoring. The risks, benefits and alternatives to the procedure were explained and verbal and written consent w as obtained. The site was prepped in sterile fashion. Full sterile technique was used, including ca p, mask, sterile gloves and gown and a large sterile sheet. Hand hygiene and 2% chlorhexidine and/or betadine/alcohol prep was utilized per protocol for cutaneous antisepsis. The skin and subcutaneous tissues were infiltrated with local anesthetic solution. With fluoroscopic guidance the chest was punctured between the first and second interspace and the pr escribed catheter was placed in the lung apex. Wall suction was applied. Post procedure images demon strate satisfactory position of the tube. The catheter was sutured in place and a Percu-Stay was joyce lied. Conscious sedation was performed with the prescribed dosages and duration as above in the presence of an independent trained radiology nurse to assist in the monitoring of the patient. EKG and oximetry remained stable throughout the procedure. The patient tolerated the procedure well and there were n o complications. The patient was sent to post anesthesia recovery in stable condition. CONCLUSION: 1. Uncomplicated left chest tube placement as above. Electronically signed by: Dave Resendez MD 02/09/2018 12:20 PM EDT
[2018-02-09] MEDS ORDERED: Naloxone Inj 0.4 MG/ML Vial IV.PUSH PRN (13:29)
[2018-02-09] MEDS ORDERED: Sodium Chloride 0.9% 2 ML Flush PRN IV.FLUSH (13:37)
[2018-02-09] MEDS ORDERED: Morphine Sulfate Inj 2 MG/ML Vial IV.PUSH PRN (13:45)
--- NOTE | 2018-02-09 15:15 | CT ---
EXAM DATE: 02/09/2018 2:08 PM EDT AGE/SEX: 17 years / Male INDICATIONS: Evaluate pneumothorax. CLINICAL DATA: This is the patient's subsequent encounter. Patient reports that signs and symptoms h ave been present for 3 days and indicates a pain score of 4/10. MEDICAL/SURGICAL HISTORY: None. None. RADIATION DOSE: 14.76 CTDI (mGy) COMPARISON: . TECHNIQUE: Multiple contiguous axial images were obtained through the chest without contrast. Image s were obtained in suspended respiration using multiple row detector helical technique. Using automa jhony exposure control and adjustment of the mA and/or kV according to patient size, radiation dose was kept as low as reasonably achievable to obtain optimal diagnostic quality images. DICOM format imag e data is available electronically for review and comparison. FINDINGS: Lungs: Left apical pigtail thoracostomy tube is present. There is minimal residual anteromedial pneu mothorax. There is slight posterior lung atelectasis on the left. No large blebs or bulla are clearly appreciated. Right lung is clear and well inflated. Mediastinum: There is good visualization of the great vessels of the middle mediastinum. No evidenc e of mediastinal or hilar adenopathy/mass. Pleurae: No evidence of focal thickening or pleural effusion. Axillae: Unremarkable. Bony Structures: Unremarkable. Miscellaneous: The examination was extended to include the upper abdomen, and both adrenal glands ar e normal in size and configuration. CONCLUSION: Left apical pigtail thoracostomy tube in good position with minimal residual left pneumothorax and mi ld left lung atelectasis. Electronically signed by: Papa Landry MD 02/09/2018 3:14 PM EDT
[2018-02-09] MEDS ORDERED: Haloperidol Inj 5 MG/ML Ampul IM PRN (16:31)
--- NOTE | 2018-02-09 16:41 | MB ---
cc: Lay Hampton MD DATE: 02/09/2018 HISTORY OF PRESENT ILLNESS: A 17-year-old patient who is a [employer] student. 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 Apparently played a football game Thursday and then woke up Thursday morning with sharp left-sided chest pain, nonradiating, shortness of breath. Went to an urgent care where they sent him to the emergency department where he was found to have a left-sided pneumothorax. The patient underwent chest tube placement to the left lateral chest wall with interval resolution of the left-sided pneumothorax. The patient then underwent an x-ray this morning, which showed persistent unchanged left-sided pneumothorax despite 40 cm of suction. There was no midline shift. The patient had a second chest tube placed in the left apex with resolution of the pneumothorax. He also had a chest CT while undergoing the first chest tube placement. There was no evidence of mediastinal or hilar adenopathy. No evidence of focal thickening or pleural effusion. We were consulted due to persistent pneumothorax prior to the second chest tube placement. PAST MEDICAL HISTORY: The patient has no past medical history. PAST SURGICAL HISTORY: Include left knee repair for ACL. ALLERGIES: HE IS ALLERGIC TO PENICILLIN AND NICKEL. MEDICATIONS: Takes no home medications. FAMILY HISTORY: Unremarkable. No history of prior pneumothorax in the family. SOCIAL HISTORY: Does play contact football. His last flight was approximately 2 weeks ago with his football team. REVIEW OF SYSTEMS: GENERAL: No night sweats, fever, heat and cold intolerance. SKIN: No psoriasis, itching or hives. HEENT: No blurred vision, hearing loss. RESPIRATORY: Positive for recent cough, shortness of breath. CARDIOVASCULAR: Recent left-sided chest pain. GASTROINTESTINAL: No diarrhea or vomiting. GENITOURINARY: No burning, frequency, urgency. CENTRAL NERVOUS SYSTEM: No history of TIA, CVA, seizure disorder. ENDOCRINOLOGY: No diabetes or hypothyroidism. PHYSICAL EXAMINATION: VITAL SIGNS: Blood pressure 130/80, heart rate of 60, afebrile. GENERAL: The patient is awake, alert. Complaining of some left upper chest wall discomfort. He is status post second chest tube placement. HEENT: Head is normocephalic, atraumatic. Pupils equal and reactive. Oral mucosa pink, moist. NECK: Supple. No JVD. HEART: Sounds S1, S2. Regular rate and rhythm. No audible rubs, murmurs, or gallops. LUNGS: Diminished in the bases, otherwise clear to auscultation. No wheezes, rales or rhonchi. ABDOMEN: Soft, nontender. No masses or organomegaly. EXTREMITIES: No cyanosis, clubbing, or edema. LABORATORY DATA: No active lab work. RADIOLOGICAL EXAMS: As above. IMPRESSION: Left spontaneous pneumothorax. No history of connective tissue disorder. Status post left lateral chest tube placement. Despite the increase to 40 cm, he had recurrence of the left pneumothorax, now status post second pigtail catheter placement left apex. CT scan will be evaluated by Dr. Lay Hampton and evaluation for possible need for video-assisted thoracoscopy if no improvement at this time. Dictated by JENNY Gil Patient examined and chart reviewed on 02/09/2018. Agree with above. Will obtain a chest CT without contrast to determine if he has any apical blebs contributing to his spontaneous pneumothorax. If that is the case, then he may benefit from thoracoscopic resection of the blebs to prevent a recurrent episode. Otherwise should his pneumothorax resolve with simple catheter drainage and the CT does not demonstrate any blebs, it may be reasonable to go with a conservative nonsurgical option. Will discuss further with patient following results of the chest CT. Thank you for allowing me to participate in the care of this patient. MD MY Shultz/tiffany , 04:03 PM , 04:13 PM REJI
[2018-02-09] MEDS: oxyCODONE/Acetaminophen 10/325 Tablet PO PRN (20:16)
[2018-02-09] MEDS: Sodium Chloride 0.9% 2 ML Flush BID IV.FLUSH SCH (20:17)
[2018-02-10] MEDS: Sod Chloride 0.9% Inj 1,000 ML IV.CONT SCH ×2 (00:26→03:15)
--- NOTE | 2018-02-10 09:09 | P.PNPL ---
Subjective Interval history: Patient s/p 2nd chest tube placement by IR yesterday, CT chest showed Left apical pigtail thoracostomy tube in good position with minimal residual left pneumothorax and mild left lung atelectasis. Patient denies any CP/SOB. Physical Exam Vital signs: Vital Signs 02/09/18 11:30 02/09/18 13:14 02/09/18 16:00 Temperature 99.0 F 97.9 F 98.9 F Pulse Rate 98 H 61 68 Respiratory Rate 18 17 18 Blood Pressure 126/71 127/80 124/67 Pulse Oximetry 94 L 100 99 02/09/18 16:31 02/09/18 20:00 02/09/18 20:46 Temperature 99.9 F H Pulse Rate 86 72 Respiratory Rate 18 22 20 Blood Pressure 124/61 Pulse Oximetry 94 L 02/09/18 21:06 02/10/18 00:00 02/10/18 03:16 Temperature 98.3 F Pulse Rate 78 74 70 Respiratory Rate 14 20 15 Blood Pressure 132/59 L Pulse Oximetry 95 02/10/18 04:00 02/10/18 06:04 02/10/18 08:00 Temperature 98.6 F 98.0 F Pulse Rate 62 73 Respiratory Rate 20 20 19 Blood Pressure 133/77 139/77 Pulse Oximetry 98 97 Intake & Output 02/09/18 02/10/18 02/10/18 18:59 06:59 18:59 Intake Total 1750 / 1750 1360 / 1360 Output Total 885 / 885 650 / 650 Balance 865 / 865 710 / 710 Weight 98.5 kg Intake: IV 1000 / 1000 1000 / 1000 NS Inj 1,000 ML @ 100 mls/hr IV 1000 / 1000 1000 / 1000 .CONT .Q10H [facility] Rx#:[id number] Oral 750 / 750 360 / 360 Output: Urine 850 / 850 650 / 650 Chest Tube Drainage 35 / 35 0 / 0 Left Anterior 0 / 0 Left Upper 35 / 35 0 / 0 Other: # Bowel Movements 0 - Constitutional no acute distress - Routine HEENT Exam Head: Present: normocephalic, atraumatic Eye: Present: EOMI, PERRL, normal accommodation, conjunctivae pink ENT: Present: mucous membranes moist - Routine Neck Exam Present: supple, full ROM, trachea midline - Routine Respiratory Exam Present: CTA bilaterally - Routine Cardiovascular Exam Present: RRR, S1, S2 - Routine Abdominal Exam Present: soft, normoactive bowel sounds - Routine Extremities Exam Present: full ROM - Routine Skin Exam Present: intact, dry - Routine Neurological Exam Present: alert, oriented X3, CN II-XII intact - Routine Psychiatric Exam Present: normal affect, normal thought process Assessment and Plan - Plan Imp: 1. Recurrent Left pneumothorax, 2. Minimal atelectasis in the left mid lung. Plan Continue with oxygen and maintain sats>92%. Bronchodilators. Patient s/p 2nd CT insertion by IR 02/09 continue with 20 cm wall suction. Check CXR CT chest showed Left apical pigtail thoracostomy tube in good position with minimal residual left pneumothorax and mild left lung atelectasis. CTS is following-Dr. Hampton , possible need for VATS if no improvement. Continue treatment plan Discussed with patient's mother.
--- NOTE | 2018-02-10 09:30 | XR ---
EXAM DATE: 02/10/2018 12:00 AM EDT AGE/SEX: 17 years / Male INDICATIONS: Soreness left chest near chest tubes. Evaluate for pneumothorax. CLINICAL DATA: This is the patient's subsequent encounter. Patient reports that signs and symptoms h ave been present for 2 days and indicates a pain score of 1/10. MEDICAL/SURGICAL HISTORY: None. . Two left chest tubes. [place] [facility] [place]. . FINDINGS: Interval placement of left apical chest tube with stable left inferior chest tube. No significant res idual pneumothorax. Lungs are clear. Cardiomediastinal contours are within normal limits. Remainder o f the exam is unchanged. CONCLUSION: 1. Well-positioned new left apical chest tube without significant pneumothorax. Electronically signed by: Pa Orellana MD 02/10/2018 9:28 AM EDT
--- NOTE | 2018-02-10 10:13 | P.PNFP ---
Subjective Interval history: Patient seen and examined this morning. He denies shortness of breath or chest pain at this time, aside from the surgical sites. He notes no bleeding, drainage , redness or swelling at the insertion sites of the chest tubes. He does note mild soreness at the prior surgical sites. Denies fever, chills, nausea, vomiting, abdominal pain, leg swelling or leg edema. <Grace Robison - 02/10/18 13:48> Results - Imaging Impressions Chest X-Ray 02/10/18 00:00 CONCLUSION: 1. Well-positioned new left apical chest tube without significant pneumothorax. Chest X-Ray 02/10/18 11:25 CONCLUSION: 1. No interval change. 2. Stable left-sided chest tubes without pneumothorax. <Ilya Guerrero - 02/10/18 16:15> Impressions Chest CT 02/09/18 00:00 CONCLUSION: Left apical pigtail thoracostomy tube in good position with minimal residual left pneumothorax and mild left lung atelectasis. Chest Tube Insertion 02/09/18 00:00 CONCLUSION: 1. Uncomplicated left chest tube placement as above. Chest X-Ray 02/09/18 11:25 CONCLUSION: No pneumothorax Chest X-Ray 02/10/18 00:00 CONCLUSION: 1. Well-positioned new left apical chest tube without significant pneumothorax. <Grace Robison - 02/10/18 10:13> Physical Exam Vital signs: Vital Signs 02/09/18 16:31 02/09/18 20:00 02/09/18 20:46 Temperature 99.9 F H Pulse Rate 86 72 Respiratory Rate 18 22 20 Blood Pressure 124/61 Pulse Oximetry 94 L 02/09/18 21:06 02/10/18 00:00 02/10/18 03:16 Temperature 98.3 F Pulse Rate 78 74 70 Respiratory Rate 14 20 15 Blood Pressure 132/59 L Pulse Oximetry 95 02/10/18 04:00 02/10/18 06:04 02/10/18 08:00 Temperature 98.6 F 98.0 F Pulse Rate 62 73 Respiratory Rate 20 20 19 Blood Pressure 133/77 139/77 Pulse Oximetry 98 97 02/10/18 10:32 02/10/18 10:33 02/10/18 12:00 Temperature 98.7 F Pulse Rate 70 68 Respiratory Rate 16 17 Blood Pressure 155/73 H Pulse Oximetry 96 97 02/10/18 15:37 02/10/18 16:00 Temperature 98.5 F Pulse Rate 77 77 Respiratory Rate 18 17 Blood Pressure 139/77 Pulse Oximetry 99 96 Intake & Output 02/09/18 02/10/18 02/10/18 18:59 06:59 18:59 Intake Total 1750 / 1750 1360 / 1360 1974 Output Total 885 / 885 650 / 650 Balance 865 / 865 710 / 710 1974 Weight 98.5 kg Intake: IV 1000 / 1000 1000 / 1000 1974 NS Inj 1,000 ML @ 100 mls/hr IV 1000 / 1000 1000 / 1000 1974 .CONT .Q10H BERNARDA Rx#:[id number] Oral 750 / 750 360 / 360 Output: Urine 850 / 850 650 / 650 Chest Tube Drainage 35 / 35 0 / 0 Left Anterior 0 / 0 Left Upper 35 / 35 0 / 0 Other: # Bowel Movements 0 <Ilya Guerrero - 02/10/18 16:15> Vital Signs 02/09/18 11:30 02/09/18 13:14 02/09/18 16:00 Temperature 99.0 F 97.9 F 98.9 F Pulse Rate 98 H 61 68 Respiratory Rate 18 17 18 Blood Pressure 126/71 127/80 124/67 Pulse Oximetry 94 L 100 99 02/09/18 16:31 02/09/18 20:00 02/09/18 20:46 Temperature 99.9 F H Pulse Rate 86 72 Respiratory Rate 18 22 20 Blood Pressure 124/61 Pulse Oximetry 94 L 02/09/18 21:06 02/10/18 00:00 02/10/18 03:16 Temperature 98.3 F Pulse Rate 78 74 70 Respiratory Rate 14 20 15 Blood Pressure 132/59 L Pulse Oximetry 95 02/10/18 04:00 02/10/18 06:04 02/10/18 08:00 Temperature 98.6 F 98.0 F Pulse Rate 62 73 Respiratory Rate 20 20 19 Blood Pressure 133/77 139/77 Pulse Oximetry 98 97 Intake & Output 02/09/18 02/10/18 02/10/18 18:59 06:59 18:59 Intake Total 1750 / 1750 1360 / 1360 Output Total 885 / 885 650 / 650 Balance 865 / 865 710 / 710 Weight 98.5 kg Intake: IV 1000 / 1000 1000 / 1000 NS Inj 1,000 ML @ 100 mls/hr IV 1000 / 1000 1000 / 1000 .CONT .Q10H BERNARDA Rx#:[id number] Oral 750 / 750 360 / 360 Output: Urine 850 / 850 650 / 650 Chest Tube Drainage 35 / 35 0 / 0 Left Anterior 0 / 0 Left Upper 35 / 35 0 / 0 Other: # Bowel Movements 0 <Grace Robison - 02/10/18 10:13> Narrative: General: 17 year old, healthy-appearing male in no acute respiratory distress. CV: Regular rate and rhythm without murmur Pulmonary: Clear to auscultation bilaterally. Pigtail catheter chest tube in lateral chest wall and chest tube to anterolateral chest wall on left. No notable bleeding, drainage or leakage. Both chest tubes are hooked up to wall suction. Abdomen: Soft, nontender, nondistended MSK: No leg edema or calf tenderness. <Grace Robison - 02/10/18 13:48> Assessment and Plan - Assessment (1) Pneumothorax Code(s): J93.9 - Pneumothorax, unspecified Status: Acute (2) Nutrition, metabolism, and development symptoms Code(s): R63.8 - Other symptoms and signs concerning food and fluid intake Status: Acute (3) DVT prophylaxis Status: Acute <Ilya Guerrero - 02/10/18 16:15> (1) Pneumothorax Code(s): J93.9 - Pneumothorax, unspecified Status: Acute Plan: Spontaneous tension pneumothorax in a young healthy male s/p pigtail catheter placement with subsequent resolution of pneumothorax via repeat chest x-ray on 02/08. IR placed second chest tube on 02/09. Pulmonology consulted -Continue supplemental oxygen to maintain O2 saturations above 92% -Duo nebs every 6 hours +2 hours as needed for shortness of breath -Repeat chest x-ray in 24 hours IR consulted for placement of chest tube on 02/09. Good placement per CXR/CT chest on 02/09. CT surgery consulted 02/09: Ordered CT chest which showed no re-accumulation of PTX following second chest tube placement. Will continue to follow. Plan for VATS if patients shows no improvement. (2) Nutrition, metabolism, and development symptoms Code(s): R63.8 - Other symptoms and signs concerning food and fluid intake Status: Acute Plan: Fluids: None Electrolytes: None Nutrition: Reg diet GI prophy: None (3) DVT prophylaxis Status: Acute Plan: None indicated, encourage ambulation <Grace Robison - 02/10/18 13:45> - Attending Attestation Patient case discussed with resident physicians I have independently examined the patient I have read the above note and agree with the assessment and plan as discussed with me I was involved in all medical decision making for this patient Case was discussed with Dr. Hampton who feels that there may be a small apical bleb on the left lung. He recommends a VATS procedure for definitive treatment. I had a long discussion with the patient and family who are in agreement. Dr. Hampton was notified for likely procedure tomorrow Ilya Guerrero MD <Ilya Guerrero - 02/10/18 16:15> <Grace Robison B - Last Filed: 02/10/18 13:45> (1) Pneumothorax Qualifiers: Pneumothorax type: unspecified pneumothorax Qualified Code(s): J93.9 - Pneumothorax, unspecified <Ilya Guerrero - Last Filed: 02/10/18 16:15> (1) Pneumothorax Qualifiers: Pneumothorax type: unspecified pneumothorax Qualified Code(s): J93.9 - Pneumothorax, unspecified <EyrnGrace ralph - Last Filed: 02/10/18 13:45> (1) Pneumothorax Qualifiers: Pneumothorax type: unspecified pneumothorax Qualified Code(s): J93.9 - Pneumothorax, unspecified <Ilya Guerrero - Last Filed: 02/10/18 16:15> (1) Pneumothorax Qualifiers: Pneumothorax type: unspecified pneumothorax Qualified Code(s): J93.9 - Pneumothorax, unspecified
--- NOTE | 2018-02-10 11:49 | XR ---
EXAM DATE: 02/10/2018 11:25 AM EDT AGE/SEX: 17 years / Male INDICATIONS: Evaluate for Pneumothorax. Patient complains of chest pain at site of chest tubes. CLINICAL DATA: This is the patient's subsequent encounter. Patient reports that signs and symptoms h ave been present for 2 days and indicates a pain score of 3/10. MEDICAL/SURGICAL HISTORY: . Patient states he had collided with someone playing football and th e next day he started not feeling well. None. COMPARISON: [facility], CHEST 1V SINGLE AP, 02/10/2018. . FINDINGS: Stable chest tubes in the apex and inferior left hemithorax. No significant pneumothorax. Remainder o f the exam is unchanged. CONCLUSION: 1. No interval change. 2. Stable left-sided chest tubes without pneumothorax. Electronically signed by: Pa Orellana MD 02/10/2018 11:47 AM EDT
[2018-02-10] MEDS: Sodium Chloride 0.9% 2 ML Flush BID IV.FLUSH SCH (12:58)
[2018-02-10] MEDS ORDERED: Vancomycin Inj 1,250 MG in Sodium Chlor 0.9% Inj 250 ML IV.SIG SCH (15:00)
[2018-02-10] MEDS ORDERED: Chlorhexidine 4% Topical 120 APPLIC/120 ML Bottle TOPICAL SCH (16:00)
[2018-02-10 19:18] LABS: INR 1.1 Ratio; Prothrombin Time 11.4 sec (9.8-11.6)
[2018-02-10 23:48] LABS: Baso % (Auto) 0.7 % (0.0-2.0); Eos # (Auto) 0.1 th/mm3 (0.0-0.4); Hematocrit 46.5 % (39.0-51.0); Hemoglobin 15.9 gm/dL (13.0-17.0); Lymph # (Auto) 1.7 th/mm3 (1.0-4.8); Mean Corpuscular HGB Conc 34.1 % (32.0-36.0); Mean Corpuscular Hemoglobin 31.1 pg (27.0-34.0); Mean Corpuscular Volume 91.1 fL (80.0-100.0); Mean Platelet Volume 9.1 fL (7.0-11.0); Mono # (Auto) 0.8 th/mm3 (0.0-0.9); Mono % (Auto) 15.4 % (0.0-8.0); Neut # (Auto) 2.4 th/mm3 (1.8-7.7); Neut % (Auto) 47.9 % (16.0-70.0); Platelet Count 200 th/mm3 (150-450); Red Blood Count 5.11 mil/mm3 (4.50-5.90); Red Cell Distribution Width 13.8 % (11.6-17.2)
[2018-02-11 00:11] LABS: Calcium 8.8 mg/dL (8.5-10.1); Carbon Dioxide 26.7 meq/L (21.0-32.0)
--- NOTE | 2018-02-11 07:00 | XR ---
EXAM DATE: 02/11/2018 12:00 AM EDT AGE/SEX: 17 years / Male INDICATIONS: Short of breath, pain left chest at chest tube sites CLINICAL DATA: This is the patient's subsequent encounter. Patient reports that signs and symptoms h ave been present for 4 - 6 days and indicates a pain score of 6/10. MEDICAL/SURGICAL HISTORY: . pneumothorax Chest tube, left. shielded COMPARISON: [facility] – [place], 02/10/2018. . FINDINGS: Stable left-sided chest tubes without pneumothorax. Lungs are clear. Cardiomediastinal contours are w ithin normal limits. Remainder of exam is unchanged. CONCLUSION: 1. Stable left-sided chest tubes without pneumothorax. Electronically signed by: Pa Orellana MD 02/11/2018 6:59 AM EDT
--- NOTE | 2018-02-11 09:15 | P.PNPL ---
Subjective Interval history: No events overnight, for VATS procedure today. CXR this morning showed no evidence of PTX. Physical Exam Vital signs: Vital Signs 02/10/18 10:32 02/10/18 10:33 02/10/18 12:00 Temperature 98.7 F Pulse Rate 70 68 Respiratory Rate 16 17 Blood Pressure 155/73 H Pulse Oximetry 96 97 02/10/18 15:37 02/10/18 16:00 02/10/18 20:00 Temperature 98.5 F 98.2 F Pulse Rate 77 77 76 Respiratory Rate 18 17 17 Blood Pressure 139/77 152/69 H Pulse Oximetry 99 96 98 02/10/18 21:06 02/11/18 00:00 02/11/18 03:31 Temperature 98.4 F Pulse Rate 80 74 75 Respiratory Rate 16 18 20 Blood Pressure 143/81 H Pulse Oximetry 93 L 02/11/18 04:00 02/11/18 08:00 Temperature 98.0 F 98.3 F Pulse Rate 67 74 Respiratory Rate 18 18 Blood Pressure 154/81 H 136/80 Pulse Oximetry 99 95 Intake & Output 02/10/18 02/11/18 02/11/18 18:59 06:59 18:59 Intake Total 3975 / 3975 800 / 800 Output Total 700 / 700 Balance 3975 / 3975 100 / 100 Weight 95.9 kg Intake: IV 1974 NS Inj 1,000 ML @ 100 mls/hr IV 1974 .CONT .Q10H BERNARDA Rx#:[id number] Oral 1999 / 1999 800 / 800 Output: Urine 700 / 700 Chest Tube Drainage 0 / 0 Left Anterior 0 / 0 Left Upper 0 / 0 Other: # Voids 1 Date of Last Bowel Movement 02/07/18 - Constitutional no acute distress - Routine HEENT Exam Head: Present: normocephalic, atraumatic Eye: Present: EOMI, PERRL, normal accommodation, conjunctivae pink ENT: Present: mucous membranes moist - Routine Neck Exam Present: supple, full ROM, trachea midline - Routine Respiratory Exam Present: CTA bilaterally - Routine Cardiovascular Exam Present: RRR, S1, S2 - Routine Abdominal Exam Present: soft, normoactive bowel sounds - Routine Extremities Exam Present: full ROM, pulses intact - Routine Skin Exam Present: intact, dry - Routine Neurological Exam Present: alert, oriented X3, CN II-XII intact - Routine Psychiatric Exam Present: normal affect Assessment and Plan - Plan Imp: 1. Recurrent Left pneumothorax, 2. Minimal atelectasis in the left mid lung. Plan Continue with oxygen and maintain sats>92%. Bronchodilators. CXR today- CT's in place with no evidence of PTX. Patient s/p 2nd CT insertion by IR 02/09 continue with [address] chest showed Left apical pigtail thoracostomy tube in good position with minimal residual left pneumothorax and mild left lung atelectasis. CTS is following-Dr. Hampton , for VATS procedure today Pain control. Continue treatment plan
--- NOTE | 2018-02-11 11:11 | P.PNFP ---
Subjective Interval history: Patient doing well overnight with no acute issues. Continues to complain of some minor discomfort at the site of chest tube insertion. States he has mild shortness of breath when he gets up and walks. Otherwise he denies chest pain or palpitations, denies significant shortness of breath, denies nausea or vomiting, denies fevers or chills. Results - Labs Result diagrams: 02/10/18 23:37 02/10/18 23:37 Abnormal lab results 02/10/18 02/10/18 Range/Units 23:37 23:37 [place] % (Auto) 15.4 H (0.0-8.0) % Estimated GFR 77 L (>89) mL/min Short CBC 02/10/18 Range/Units 23:37 WBC 5.0 (4.0-11.0) th/mm3 Hgb 15.9 (13.0-17.0) gm/dL Hct 46.5 (39.0-51.0) % Plt Count 200 (150-450) th/mm3 BMP 02/10/18 23:37 Sodium 138 Potassium 4.0 Chloride 103 Carbon Dioxide 26.7 BUN 13 Creatinine 1.22 Calcium 8.8 - Imaging Impressions Chest X-Ray 02/10/18 11:25 CONCLUSION: 1. No interval change. 2. Stable left-sided chest tubes without pneumothorax. Chest X-Ray 02/11/18 00:00 CONCLUSION: 1. Stable left-sided chest tubes without pneumothorax. Physical Exam Vital signs: Vital Signs 02/10/18 12:00 02/10/18 15:37 02/10/18 16:00 Temperature 98.7 F 98.5 F Pulse Rate 68 77 77 Respiratory Rate 17 18 17 Blood Pressure 155/73 H 139/77 Pulse Oximetry 97 99 96 02/10/18 20:00 02/10/18 21:06 02/11/18 00:00 Temperature 98.2 F 98.4 F Pulse Rate 76 80 74 Respiratory Rate 17 16 18 Blood Pressure 152/69 H 143/81 H Pulse Oximetry 98 93 L 02/11/18 03:31 02/11/18 04:00 02/11/18 08:00 Temperature 98.0 F 98.3 F Pulse Rate 75 67 74 Respiratory Rate 20 18 18 Blood Pressure 154/81 H 136/80 Pulse Oximetry 99 95 10/25/18 09:18 Temperature Pulse Rate 68 Respiratory Rate 12 Blood Pressure Pulse Oximetry Intake & Output 02/10/18 02/11/18 02/11/18 18:59 06:59 18:59 Intake Total 3975 / 3975 800 / 800 Output Total 700 / 700 Balance 3975 / 3975 100 / 100 Weight 95.9 kg Intake: IV 1974 NS Inj 1,000 ML @ 100 mls/hr IV 1974 .CONT .Q10H BERNARDA Rx#:[id number] Oral 1999 800 / 800 Output: Urine 700 / 700 Chest Tube Drainage 0 / 0 Left Anterior 0 / 0 Left Upper 0 / 0 Other: # Voids 1 Date of Last Bowel Movement 02/07/18 Narrative: CONSTITUTIONAL/GEN: Healthy-appearing, muscular, athletic young male in no obvious distress LUNGS: clear A-P, respiratory effort is normal. Left-sided chest tubes in place and superior and inferior lateral chest wall with no notable bleeding or drainage. Both chest tubes are hooked up to wall suction. CARDIOVASCULAR: RR without murmur or gallop. GI/ABD: soft without masses, without organomegaly. PSYCH/MENTAL STATUS: Alert and oriented x 3. Assessment and Plan - Assessment (1) Pneumothorax Code(s): J93.9 - Pneumothorax, unspecified Status: Acute Plan: Patient scheduled for VATS procedure today with cardiothoracic surgery -Case was discussed with Dr. Hampton who feels that there is a small apical bleb on the left lung -VATS procedure scheduled for today Chest x-ray performed 02/11/[address] shows [address] catheters in place with no evidence of pneumothorax today Pulmonology following: -Continue supplemental oxygen to maintain O2 saturations above 92% -Duo nebs every 6 hours +2 hours as needed for shortness of breath Hospital course: Spontaneous tension pneumothorax in a young healthy male s/p pigtail catheter placement with subsequent resolution of pneumothorax via repeat chest x-ray on 02/08. IR placed second chest tube on 02/09 due to recurrence of left-sided pneumothorax. (2) Nutrition, metabolism, and development symptoms Code(s): R63.8 - Other symptoms and signs concerning food and fluid intake Status: Acute Plan: Fluids: None Electrolytes: None Nutrition: Reg diet following procedure GI prophy: None (3) DVT prophylaxis Status: Acute Plan: None indicated, encourage ambulation (1) Pneumothorax Qualifiers: Pneumothorax type: unspecified pneumothorax Qualified Code(s): J93.9 - Pneumothorax, unspecified
[2018-02-11] MEDS ORDERED: fentaNYL Citrate Inj 250 MCG/5 ML Ampul ONE (12:32)
--- NOTE | 2018-02-11 12:51 | P.PNCV ---
- Note Subjective/Hospital Course: 17-year-old patient who is a [employer] student. 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 Apparently played a football game Thursday and then woke up Thursday morning with sharp left-sided chest pain, nonradiating, shortness of breath. Went to an urgent care where they sent him to the emergency department where he was found to have a left-sided pneumothorax. The patient underwent chest tube placement to the left lateral chest wall with interval resolution of the left-sided pneumothorax. The patient then underwent an x-ray this morning, which showed persistent unchanged left-sided pneumothorax despite 40 cm of suction. There was no midline shift. The patient had a second chest tube placed in the left apex with resolution of the pneumothorax. He also had a chest CT while undergoing the first chest tube placement. There was no evidence of mediastinal or hilar adenopathy. No evidence of focal thickening or pleural effusion. Small Left apical bleb 02/11 pt scheduled for left VATS, pleurodesis and bleb resection today Objective: Vital Signs - 24 hr 02/10/18 15:37 02/10/18 16:00 02/10/18 20:00 Temperature 98.5 F 98.2 F Pulse Rate 77 77 76 Respiratory Rate 18 17 17 Blood Pressure 139/77 152/69 H Pulse Oximetry 99 96 98 02/10/18 21:06 02/11/18 00:00 02/11/18 03:31 Temperature 98.4 F Pulse Rate 80 74 75 Respiratory Rate 16 18 20 Blood Pressure 143/81 H Pulse Oximetry 93 L 02/11/18 04:00 02/11/18 08:00 02/11/18 09:18 Temperature 98.0 F 98.3 F Pulse Rate 67 74 68 Respiratory Rate 18 18 12 Blood Pressure 154/81 H 136/80 Pulse Oximetry 99 95 02/11/18 11:56 Temperature 98.6 F Pulse Rate 74 Respiratory Rate 17 Blood Pressure 122/73 Pulse Oximetry 98 Result Diagrams: 02/10/18 23:37 02/10/18 23:37 Telemetry: NSR - Plan (1) Pneumothorax (1) Pneumothorax Qualifiers: Pneumothorax type: unspecified pneumothorax Qualified Code(s): J93.9 - Pneumothorax, unspecified
[2018-02-11] MEDS ORDERED: Talc Aerosol Sterile 4 GM/30 GM Aerosol Can I-PLEURAL ONE (13:14)
[2018-02-11] MEDS ORDERED: Neostigmine Inj 5 MG/5 ML Syringe IV.PUSH ONE (13:14)
[2018-02-11] MEDS ORDERED: Glycopyrrolate Inj 1 MG/5 ML Syringe IV.PUSH ONE (13:14)
[2018-02-11] MEDS ORDERED: Phenylephrine/NS 1000 MCG/10ML Syringe IV.PUSH ONE (13:14)
[2018-02-11] MEDS ORDERED: Sodium Chlor 0.9% Inj 20 ML, Bupivacaine Liposo PF 1.3% Inj 20 ML, Dexamethasone PF Inj... IRRIGATION ONE ×4 (14:00)
[2018-02-11] MEDS ORDERED: Sugammadex Inj 200 MG/2 ML Vial IV.PUSH ONE (15:02)
--- NOTE | 2018-02-11 15:21 | P.OP ---
Date of procedure: 02/11/18 Anesthesia: GETA Surgeon: Lay Hampton MD Operation and Findings: PREOPERATIVE DIAGNOSES 1. Left pneumothorax 2. Left apical Blebs POSTOPERATIVE DIAGNOSES Same SURGICAL PROCEDURE 1. Left video-Assisted Thoracoscopic Surgery (VATS). 2. Apical Bleb resection 3. Mechanical and Talc Pleurodesis. 4. Intercostal Nerve Block SURGEON Lay Hampton MD CELL PLASTERER THOMAS Wong ANESTHESIA General double lumen endotracheal. BUSINESS SOLUTIONS ANALYST LILIANA Pierce MD PREPARATION ChloraPrep. COUNTS Needle, sponge, and instrument counts are correct. DRAINS One 28 Fr Chest tube COMPLICATIONS None. INDICATIONS The patient is a 17 yo presenting with spontaneous PTX and apical blebs. The patient is being brought to the operating room for bleb resection and pleurodesis. DESCRIPTION OF PROCEDURE The patient was brought to the operating room and placed supine on the OR table. Following the induction of adequate general double lumen endotracheal anesthesia and placement of appropriate monitoring devices, the patient was placed in the right lateral decubitus position. The left chest and surrounding areas were then prepped and draped in a standard sterile fashion. A 5 mm camera port was introduced into the 8th intercostal space in mid axillary line, and the camera introduced. A second 5 mm port was then placed anteriorly under direct visual guidance and one posteriorly. The left lung was explored. The apical bleb was identified and resected using a SEB stapler.Through the port site, mechanical and talc pleurodesis was performed. The anterior port was removed and a 28 Fr chest tube was placed. This was maintained in place with a nonabsorbable suture. Both of the entry sites were injected with Exparel solution as was the port site. Following confirmation of the catheter in the proper place, the incisions were closed with 3 layers. The chest tube was attached to a suction device, and sterile dressing applied. Intercostal nerve block was performed using Exparel solution. The patient tolerated the procedure well and was extubated and transferred to the recovery room in stable condition.
[2018-02-11] MEDS ORDERED: Post-op Orders (for Pharmacy) OTHER STA (15:24)
[2018-02-11] MEDS ORDERED: *morphine SULFATE 4 MG/ML PERIprocedure ONLY ONE ×3 (15:32→15:58)
--- NOTE | 2018-02-11 15:46 | XR ---
EXAM DATE: 02/11/2018 3:43 PM EDT AGE/SEX: 17 years / Male INDICATIONS: Post thoracotomy. CLINICAL DATA: This is the patient's subsequent encounter. Patient reports that signs and symptoms h ave been present for 1 day and indicates a pain score of Nonresponsive. MEDICAL/SURGICAL HISTORY: Non-responsive. Non-responsive. COMPARISON: [facility] – [place], CHEST 1V SINGLE AP, 02/11/2018. . FINDINGS: Interval left thoracotomy with new large bore left apical chest tube in place. No significant pneumot horax. Lungs are clear. Cardiomediastinal contours are stable. Remainder of exam is unchanged. CONCLUSION: 1. Expected postoperative features with left apical chest tube in place. No significant pneumothorax . Electronically signed by: Pa Orellana MD 02/11/2018 3:45 PM EDT
[2018-02-11] MEDS ORDERED: Ketorolac Inj 30 MG/ML (IVP) Vial ONE (16:02)
[2018-02-11] MEDS: Ketorolac Inj 30 MG/ML (IVP) Vial IV.PUSH SCH ×2 (16:04→21:28)
[2018-02-11] MEDS: Senna/Docusate Sodium 8.6/50 MG Tablet PO SCH (21:28)
[2018-02-12] MEDS: Vancomycin Inj 1,000 MG in Sodium Chlor 0.9% Inj 250 ML IV.SIG SCH ×2 (02:56→14:07)
[2018-02-12] MEDS: Ketorolac Inj 30 MG/ML (IVP) Vial IV.PUSH SCH ×2 (05:32→10:27)
--- NOTE | 2018-02-12 06:11 | XR ---
EXAM DATE: 02/12/2018 5:42 AM EDT AGE/SEX: 17 years / Male INDICATIONS: Post op left bleb resection, evaluate for pneumothorax CLINICAL DATA: This is the patient's subsequent encounter. Patient reports that signs and symptoms h ave been present for 4 - 6 days and indicates a pain score of 5/10. MEDICAL/SURGICAL HISTORY: None. None. COMPARISON: [facility] – [place], CHEST 1V SINGLE AP, 02/11/2018. . FINDINGS: Left chest drainage tube stable in position with its tip in the upper chest. No evidence of pneumotho rax. The lungs are symmetrically aerated and clear. Both hemidiaphragms well delineated. The heart is normal size. CONCLUSION: No pneumothorax seen. Left chest tube stable in position. Electronically signed by: Dave Swann MD 02/12/2018 6:10 AM EDT
[2018-02-12] MEDS: Senna/Docusate Sodium 8.6/50 MG Tablet PO SCH ×2 (09:52→20:52)
--- NOTE | 2018-02-12 11:49 | P.PNFP ---
Subjective Interval history: No problems or complaints, feels he is breathing better. Has not had a BM in a while. Feels his left side is sore. Pain is controlled however. Told he has Miralax on board PRN for constipation. Will take it today. <OpalJorgeElham N - 02/12/18 11:49> Results - Labs Result diagrams: 02/10/18 23:37 02/10/18 23:37 <Ilya Guerrero - 02/12/18 14:41> - Imaging Impressions Chest X-Ray 02/11/18 14:56 CONCLUSION: 1. Expected postoperative features with left apical chest tube in place. No significant pneumothorax. Chest X-Ray 02/12/18 14:56 CONCLUSION: No pneumothorax seen. Left chest tube stable in position. <Ilya Guerrero - 02/12/18 14:41> Impressions Chest X-Ray 02/11/18 14:56 CONCLUSION: 1. Expected postoperative features with left apical chest tube in place. No significant pneumothorax. Chest X-Ray 02/12/18 14:56 CONCLUSION: No pneumothorax seen. Left chest tube stable in position. <Elham Joseph N - 02/12/18 11:49> Physical Exam Vital signs: Vital Signs 02/11/18 15:25 02/11/18 15:40 02/11/18 15:55 Temperature 99.5 F Pulse Rate 98 H 88 83 Respiratory Rate 20 20 16 Blood Pressure 163/74 H 149/78 H 138/69 Pulse Oximetry 100 100 96 02/11/18 16:15 02/11/18 16:50 02/11/18 20:00 Temperature 98.8 F 99.0 F 98.4 F Pulse Rate 89 74 76 Respiratory Rate 20 18 16 Blood Pressure 151/71 H 136/77 134/64 Pulse Oximetry 96 94 L 96 02/12/18 00:00 02/12/18 03:42 02/12/18 04:00 Temperature 98.2 F 98.9 F Pulse Rate 82 76 74 Respiratory Rate 16 16 16 Blood Pressure 126/58 L 104/55 L Pulse Oximetry 96 97 02/12/18 07:58 02/12/18 08:00 02/12/18 12:00 Temperature 99.1 F 98.2 F Pulse Rate 80 95 H 68 Respiratory Rate 20 16 16 Blood Pressure 113/60 120/54 L Pulse Oximetry 98 98 Intake & Output 02/11/18 02/12/18 02/12/18 18:59 06:59 18:59 Intake Total 750 / 750 970 / 970 Output Total 500 / 500 882 / 882 Balance 250 / 250 88 / 88 Weight 96.8 kg Intake: IV 500 / 500 250 / 250 Vancomycin Inj 1,000 MG In NS 250 / 250 Inj 250 ML @ 250 mls/hr IV.SIG Q12H BERNARDA Rx#:[id number] Vancomycin Inj 1,250 MG In NS 500 / 500 Inj 250 ML @ 250 mls/hr IV.SIG PROPERTY ANALYST BERNARDA Rx#:[id number] Oral 250 / 250 720 / 720 Output: Urine 500 / 500 750 / 750 Chest Tube Drainage 132 / 132 #3 Left Lower 132 / 132 Other: # Voids 1 Date of Last Bowel Movement 02/07/18 02/07/18 <Ilya Guerrero - 02/12/18 14:41> Vital Signs 02/11/18 11:56 02/11/18 15:25 02/11/18 15:40 Temperature 98.6 F 99.5 F Pulse Rate 74 98 H 88 Respiratory Rate 17 20 20 Blood Pressure 122/73 163/74 H 149/78 H Pulse Oximetry 98 100 100 02/11/18 15:55 02/11/18 16:15 02/11/18 16:50 Temperature 98.8 F 99.0 F Pulse Rate 83 89 74 Respiratory Rate 16 20 18 Blood Pressure 138/69 151/71 H 136/77 Pulse Oximetry 96 96 94 L 02/11/18 20:00 02/12/18 00:00 02/12/18 03:42 Temperature 98.4 F 98.2 F Pulse Rate 76 82 76 Respiratory Rate 16 16 16 Blood Pressure 134/64 126/58 L Pulse Oximetry 96 96 02/12/18 04:00 02/12/18 07:58 02/12/18 08:00 Temperature 98.9 F 99.1 F Pulse Rate 74 80 95 H Respiratory Rate 16 20 16 Blood Pressure 104/55 L 113/60 Pulse Oximetry 97 98 Intake & Output 02/11/18 02/12/18 02/12/18 18:59 06:59 18:59 Intake Total 750 / 750 970 / 970 Output Total 500 / 500 882 / 882 Balance 250 / 250 88 / 88 Weight 96.8 kg Intake: IV 500 / 500 250 / 250 Vancomycin Inj 1,000 MG In NS 250 / 250 Inj 250 ML @ 250 mls/hr IV.SIG Q12H BERNARDA Rx#:[id number] Vancomycin Inj 1,250 MG In NS 500 / 500 Inj 250 ML @ 250 mls/hr IV.SIG PROPERTY ANALYST BERNARDA Rx#:[id number] Oral 250 / 250 720 / 720 Output: Urine 500 / 500 750 / 750 Chest Tube Drainage 132 / 132 #3 Left Lower 132 / 132 Other: # Voids 1 Date of Last Bowel Movement 02/07/18 02/07/18 <Elham Joseph N - 02/12/18 11:49> Narrative: CONSTITUTIONAL/GEN: Healthy-appearingyoung male in no obvious distress LUNGS: respiratory effort is normal. Overall, breath sounds louder on right than on left. Left-sided chest tubes in place, draining serosanguineous fluid. Chest tube is hooked up to wall suction. CARDIOVASCULAR: RR without murmur or gallop. GI/ABD: soft without masses, without organomegaly. PSYCH/MENTAL STATUS: Alert and oriented x 3. <Elham Joseph N - 02/12/18 11:49> Assessment and Plan - Assessment (1) Pneumothorax Code(s): J93.9 - Pneumothorax, unspecified Status: Acute (2) Nutrition, metabolism, and development symptoms Code(s): R63.8 - Other symptoms and signs concerning food and fluid intake Status: Acute (3) DVT prophylaxis Status: Acute <Ilya Guerrero - 02/12/18 14:41> (1) Pneumothorax Code(s): J93.9 - Pneumothorax, unspecified Status: Acute Plan: Chest x-ray today with no evidence of pneumothorax today Pulmonology following: -Continue supplemental oxygen to maintain O2 saturations above 92% -Duo nebs every 6 hours +2 hours as needed for shortness of breath CT Surg following, S/p VATS lung bx pending Hospital course: Spontaneous tension pneumothorax in a young healthy male s/p pigtail catheter placement with subsequent resolution of pneumothorax via repeat chest x-ray on 02/08. IR placed second chest tube on 02/09 due to recurrence of left-sided pneumothorax. S/p VATS procedure 02/11 w/bleb resection and pleurodesis, lung bx from procedure pending. (2) Nutrition, metabolism, and development symptoms Code(s): R63.8 - Other symptoms and signs concerning food and fluid intake Status: Acute Plan: Fluids: None Electrolytes: None Nutrition: Reg diet following procedure GI prophy: None (3) DVT prophylaxis Status: Acute Plan: None indicated, encourage ambulation <Elham Joseph - 02/12/18 11:43> - Assessment and Plan Dispo: Possible DC tomorrow <Elham Joseph - 02/12/18 11:49> - Attending Attestation Patient case discussed with resident physicians I have independently examined the patient I have read the above note and agree with the assessment and plan as discussed with me I was involved in all medical decision making for this patient Ilya Guerrero MD <Ilya Guerrero - 02/12/18 14:41> <Elham Joseph N - Last Filed: 02/12/18 11:43> (1) Pneumothorax Qualifiers: Pneumothorax type: unspecified pneumothorax Qualified Code(s): J93.9 - Pneumothorax, unspecified <Ilya Guerrero - Last Filed: 02/12/18 14:41> (1) Pneumothorax Qualifiers: Pneumothorax type: unspecified pneumothorax Qualified Code(s): J93.9 - Pneumothorax, unspecified <Elham Joseph - Last Filed: 02/12/18 11:43> (1) Pneumothorax Qualifiers: Pneumothorax type: unspecified pneumothorax Qualified Code(s): J93.9 - Pneumothorax, unspecified <Ilya Guerrero - Last Filed: 02/12/18 14:41> (1) Pneumothorax Qualifiers: Pneumothorax type: unspecified pneumothorax Qualified Code(s): J93.9 - Pneumothorax, unspecified
--- NOTE | 2018-02-12 11:57 | P.PNPL ---
Subjective Interval history: Patient s/p Left VATS., Apical Bleb resection, mechanical and Talc Pleurodesis. Denies any CP/SOB. Physical Exam Vital signs: Vital Signs 02/11/18 11:56 02/11/18 15:25 02/11/18 15:40 Temperature 98.6 F 99.5 F Pulse Rate 74 98 H 88 Respiratory Rate 17 20 20 Blood Pressure 122/73 163/74 H 149/78 H Pulse Oximetry 98 100 100 02/11/18 15:55 02/11/18 16:15 02/11/18 16:50 Temperature 98.8 F 99.0 F Pulse Rate 83 89 74 Respiratory Rate 16 20 18 Blood Pressure 138/69 151/71 H 136/77 Pulse Oximetry 96 96 94 L 02/11/18 20:00 02/12/18 00:00 02/12/18 03:42 Temperature 98.4 F 98.2 F Pulse Rate 76 82 76 Respiratory Rate 16 16 16 Blood Pressure 134/64 126/58 L Pulse Oximetry 96 96 02/12/18 04:00 02/12/18 07:58 02/12/18 08:00 Temperature 98.9 F 99.1 F Pulse Rate 74 80 95 H Respiratory Rate 16 20 16 Blood Pressure 104/55 L 113/60 Pulse Oximetry 97 98 Intake & Output 02/11/18 02/12/18 02/12/18 18:59 06:59 18:59 Intake Total 750 / 750 970 / 970 Output Total 500 / 500 882 / 882 Balance 250 / 250 88 / 88 Weight 96.8 kg Intake: IV 500 / 500 250 / 250 Vancomycin Inj 1,000 MG In NS 250 / 250 Inj 250 ML @ 250 mls/hr IV.SIG Q12H BERNARDA Rx#:[id number] Vancomycin Inj 1,250 MG In NS 500 / 500 Inj 250 ML @ 250 mls/hr IV.SIG SENIOR HARDWARE ENGINEER BERNARDA Rx#:[id number] Oral 250 / 250 720 / 720 Output: Urine 500 / 500 750 / 750 Chest Tube Drainage 132 / 132 #3 Left Lower 132 / 132 Other: # Voids 1 Date of Last Bowel Movement 02/07/18 02/07/18 - Constitutional no acute distress - Routine HEENT Exam Head: Present: normocephalic, atraumatic Eye: Present: EOMI, PERRL, normal accommodation, conjunctivae pink ENT: Present: mucous membranes moist - Routine Neck Exam Present: supple, full ROM, trachea midline - Routine Respiratory Exam Present: CTA bilaterally - Routine Cardiovascular Exam Present: RRR, S1, S2 - Routine Abdominal Exam Present: soft, normoactive bowel sounds - Routine Extremities Exam Present: full ROM, pulses intact - Routine Skin Exam Present: intact, dry - Routine Neurological Exam Present: alert, oriented X3, CN II-XII intact Assessment and Plan - Plan Imp: 1. Recurrent Left pneumothorax, 2. Minimal atelectasis in the left mid lung. Plan Continue with oxygen and maintain sats>92%. Bronchodilators. incentive spirometry s/p Left VATS., Apical Bleb resection, mechanical and Talc Pleurodesis on 02/[address], CT management per Dr. Gupta CXR today: No pneumothorax seen. Left chest tube stable in position. Pain control. Continue treatment plan
--- NOTE | 2018-02-12 13:41 | P.DCO ---
- Home Health Nursing Order: Wound care and dressing changes, Nursing assessment with vital signs Instructions: Thoracic Surgery patients Mandatory frequency Assess and evaluation, 2-3 x a week for one week Initial visit 1. Review post chest surgery instructions chest precautions, Activity, Elastic hose, Incision care, Driving, Incentive spirometry, Smoking, [place] , Work and other) 2. Need Betadine to paint incision 3. Medication reconciliation 4. Importance of follow up care/ check on appointments 5. Make calendar record temperature daily 6. When to call Home nurse, review instructions, phone list 7. Incentive Spirometry, demonstration Visit 1- Begin discharge instruction for patient family and/ or caregiver using teach back method- 1. Signs and symptoms of infection 2. Disease characteristics 3. Medicines and side effects 4. Foods and nutrition/ appetite 5. Infection control/ hand washing/ hygiene Visit 2- Continue teaching 1. Discharge instructions- include additional information on smoking cessation , Visit 3- Continue teaching- 1. Cough and deep breathing, incision monitoring. For any questions please call : / [employer] [facility] Cardiothoracic Surgery [phone] Incentive spirometry Q1 hr x 10, while awake, also use acapella device hourly whole Chest wall precautions: NO pushing or pulling, ( pt must use chest pillow support chest with all activities and with coughing Daily incision care: ok to shower ( 48hrs after chest tube removed) and then daily, no tub bath. Wash all incisions with liquid dial soap, clean wash cloth to each site, rinse and pat dry. Observe for any signs of infection, such as drainage which is dark yellow, morgan, green or foul smelling. Immediately report to the surgeon any drainage from the chest incision, or legs, and for any abnormal drainage from the chest tube sites. Notify surgeon if any temp > 101.5 degrees F. When specialty dressing removed continue to shower daily as above, then rinse and pat incision dry. Allow steri strips to fall off if you have any. Avoid lotions, creams, salves, oils, etc. for the first month pt has skin tear and blisters to left lateral chest wall , after pt shower , ok to replace xeroform dressing in small strips to skin tear, please use saline to remove old dressing , ok to use versatel one over blister sites then ok to use dry gauze to keep above in place and change at least every other day For Dr. Bray patients , please obtain PA & Lat CXR in 2 weeks, results to Dr. Bray ( prescription will be given) ( ) (Tele: ) , F/U appointment: as per [place] instructions: PCP in 2 weeks, CV surgeon 2 weeks, Textile Chemist 3-4 weeks For any questions regarding incisions/ dressing / meds / post op care or above Symptoms, Thursday 8am-5pm Heart & Vascular Surgery Office ( Dr. Hampton & Dr. Bray), After Hours / Nights (5pm -8am) Weekends and Holidays Please call [facility] Cardiac Intermediate Care Unit (CIC) Charge Nurse - Case Management Consult Yes - Certification I have seen patient Jeremias Reich III on 02/12/18. My clinical findings support the need for the requested home health care services because: Infection with risk of complications I certify that my clinical findings support that this patient is homebound because: Post-op weakness
--- NOTE | 2018-02-12 13:51 | P.PNCV ---
- Note Subjective/Hospital Course: 17-year-old patient who is a [employer] student. 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 Apparently played a football game Thursday and then woke up Thursday morning with sharp left-sided chest pain, nonradiating, shortness of breath. Went to an urgent care where they sent him to the emergency department where he was found to have a left-sided pneumothorax. The patient underwent chest tube placement to the left lateral chest wall with interval resolution of the left-sided pneumothorax. The patient then underwent an x-ray this morning, which showed persistent unchanged left-sided pneumothorax despite 40 cm of suction. There was no midline shift. The patient had a second chest tube placed in the left apex with resolution of the pneumothorax. He also had a chest CT while undergoing the first chest tube placement. There was no evidence of mediastinal or hilar adenopathy. No evidence of focal thickening or pleural effusion. Small Left apical bleb 02/11 pt scheduled for left VATS, pleurodesis and bleb resection today surgery: 02/11 1. Left video-Assisted Thoracoscopic Surgery (VATS). 2. Apical Bleb resection 3. Mechanical and Talc Pleurodesis. 4. Intercostal Nerve Block 02/12 up in chair , on room air pain controlled additional GI motility meds ordered no BM since admission pulm toileting , nebs ezpap OOB ambulate leave chest tube in Objective: Vital Signs - 24 hr 02/11/18 15:25 02/11/18 15:40 02/11/18 15:55 Temperature 99.5 F Pulse Rate 98 H 88 83 Respiratory Rate 20 20 16 Blood Pressure 163/74 H 149/78 H 138/69 Pulse Oximetry 100 100 96 02/11/18 16:15 02/11/18 16:50 02/11/18 20:00 Temperature 98.8 F 99.0 F 98.4 F Pulse Rate 89 74 76 Respiratory Rate 20 18 16 Blood Pressure 151/71 H 136/77 134/64 Pulse Oximetry 96 94 L 96 02/12/18 00:00 02/12/18 03:42 02/12/18 04:00 Temperature 98.2 F 98.9 F Pulse Rate 82 76 74 Respiratory Rate 16 16 16 Blood Pressure 126/58 L 104/55 L Pulse Oximetry 96 97 02/12/18 07:58 02/12/18 08:00 02/12/18 12:00 Temperature 99.1 F 98.2 F Pulse Rate 80 95 H 68 Respiratory Rate 20 16 16 Blood Pressure 113/60 120/54 L Pulse Oximetry 98 98 GENERAL: A&O x 3 SKIN: Warm and dry. dressing over skin tears and blisters left lateral chest chest tube in place no air leak HEAD: Normocephalic. EYES: No scleral icterus. No injection or drainage. NECK: Supple, trachea midline. No JVD or lymphadenopathy. CARDIOVASCULAR: Regular rate and rhythm without murmurs, gallops, or rubs. RESPIRATORY: Breath sounds equal bilaterally. No accessory muscle use. few scattered rhonchi GASTROINTESTINAL: Abdomen soft, non-tender, nondistended. MUSCULOSKELETAL: No cyanosis, or edema. BACK: Nontender without obvious deformity. No CVA tenderness. Result Diagrams: 02/10/18 23:37 02/10/18 23:37 - Plan (1) Pneumothorax (2) S/P thoracotomy Plan: nebs, ezpap , OOB ambulate leave chest tube in pain control skin tear dressings GI motility meds will need HHC for a couple visits 2/2 significant skin tear wounds (1) Pneumothorax Qualifiers: Pneumothorax type: unspecified pneumothorax Qualified Code(s): J93.9 - Pneumothorax, unspecified
[2018-02-12] MEDS: Polyethylene Glycol 3350 17 GM Packet PO SCH (14:08)
[2018-02-12] MEDS: oxyCODONE/Acetaminophen 10/325 Tablet PO PRN (22:44)
--- NOTE | 2018-02-13 08:35 | P.PNCV ---
- Note Subjective/Hospital Course: 17-year-old patient who is a [employer] student. 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 Apparently played a football game Thursday and then woke up Thursday morning with sharp left-sided chest pain, nonradiating, shortness of breath. Went to an urgent care where they sent him to the emergency department where he was found to have a left-sided pneumothorax. The patient underwent chest tube placement to the left lateral chest wall with interval resolution of the left-sided pneumothorax. The patient then underwent an x-ray this morning, which showed persistent unchanged left-sided pneumothorax despite 40 cm of suction. There was no midline shift. The patient had a second chest tube placed in the left apex with resolution of the pneumothorax. He also had a chest CT while undergoing the first chest tube placement. There was no evidence of mediastinal or hilar adenopathy. No evidence of focal thickening or pleural effusion. Small Left apical bleb 02/11 pt scheduled for left VATS, pleurodesis and bleb resection today surgery: 02/11 1. Left video-Assisted Thoracoscopic Surgery (VATS). 2. Apical Bleb resection 3. Mechanical and Talc Pleurodesis. 4. Intercostal Nerve Block 02/12 up in chair , on room air pain controlled additional GI motility meds ordered no BM since admission pulm toileting , nebs ezpap OOB ambulate leave chest tube in 02/13 Doing well DC chest tube today Okay to discharge following that from my standpoint Objective: Vital Signs - 24 hr 02/12/18 12:00 02/12/18 16:00 02/12/18 20:00 Temperature 98.2 F 99.3 F 99.8 F H Pulse Rate 68 82 91 H Respiratory Rate 16 16 16 Blood Pressure 120/54 L 126/61 126/59 L Pulse Oximetry 98 100 97 02/13/18 00:00 02/13/18 04:00 Temperature 99.3 F 98.3 F Pulse Rate 83 80 Respiratory Rate 16 16 Blood Pressure 135/72 125/58 L Pulse Oximetry 98 97 Result Diagrams: 02/10/18 23:37 02/10/18 23:37 - Plan (1) Pneumothorax (2) S/P thoracotomy Plan: nebs, ezpap , OOB ambulate leave chest tube in pain control skin tear dressings GI motility meds will need HHC for a couple visits 2/2 significant skin tear wounds (1) Pneumothorax Qualifiers: Pneumothorax type: unspecified pneumothorax Qualified Code(s): J93.9 - Pneumothorax, unspecified
[2018-02-13] MEDS: Polyethylene Glycol 3350 17 GM Packet PO SCH (08:38)
[2018-02-13] MEDS: Senna/Docusate Sodium 8.6/50 MG Tablet PO SCH ×2 (08:38→21:08)
--- NOTE | 2018-02-13 09:13 | P.PNPL ---
Subjective Interval history: No events overnight. CT d/c this morning by Dr. Hampton. Afebrile. Physical Exam Vital signs: Vital Signs 02/12/18 12:00 02/12/18 16:00 02/12/18 20:00 Temperature 98.2 F 99.3 F 99.8 F H Pulse Rate 68 82 91 H Respiratory Rate 16 16 16 Blood Pressure 120/54 L 126/61 126/59 L Pulse Oximetry 98 100 97 02/13/18 00:00 02/13/18 04:00 02/13/18 08:00 Temperature 99.3 F 98.3 F 98 F Pulse Rate 83 80 84 Respiratory Rate 16 16 16 Blood Pressure 135/72 125/58 L 130/86 Pulse Oximetry 98 97 99 Intake & Output 02/12/18 02/13/18 02/13/18 18:59 06:59 18:59 Intake Total 1100 / 1100 480 / 480 Output Total 300 / 300 Balance 1092 / 1092 180 / 180 Weight 95.6 kg Intake: Oral 1100 / 1100 480 / 480 Output: Urine 300 / 300 Chest Tube Drainage #3 Left Lower Other: # Voids 4 1 Date of Last Bowel Movement 02/12/18 02/12/18 # Bowel Movements 1 - Constitutional no acute distress - Routine HEENT Exam Head: Present: normocephalic, atraumatic Eye: Present: EOMI, PERRL, normal accommodation, conjunctivae pink ENT: Present: mucous membranes moist - Routine Neck Exam Present: supple, full ROM, trachea midline - Routine Respiratory Exam Present: CTA bilaterally - Routine Cardiovascular Exam Present: RRR, S1, S2 - Routine Abdominal Exam Present: soft, normoactive bowel sounds - Routine Extremities Exam Present: full ROM, pulses intact - Routine Skin Exam Present: intact, dry - Routine Neurological Exam Present: alert, oriented X3, CN II-XII intact Assessment and Plan - Plan Imp: 1. Recurrent Left pneumothorax, 2. Minimal atelectasis in the left mid lung. Plan Continue with oxygen and maintain sats>92%. Bronchodilators. incentive spirometry s/p Left VATS., Apical Bleb resection, mechanical and Talc Pleurodesis on 02/11 CT d/c this morning by Dr. Gupta CXR 02/12: No pneumothorax seen. Left chest tube stable in position. Pain control. For possible discharge later today or tomorrow. Follow up 1 week from discharge with Dr. Faye with repeat CXR.
--- NOTE | 2018-02-13 10:21 | P.PNFP ---
Subjective Interval history: No acute events overnight, patient complains of mild left-sided abdominal pain likely due to constipation. He did receive bowel regimen medications yesterday with one small bowel movement. He denies any overt chest pain, denies any shortness of breath, denies any palpitations. Minor discomfort at the area of the chest tube that was pulled this morning by Dr. Hampton. Results - Labs Result diagrams: 02/10/18 23:37 02/10/18 23:37 Physical Exam Vital signs: Vital Signs 02/12/18 12:00 02/12/18 16:00 02/12/18 20:00 Temperature 98.2 F 99.3 F 99.8 F H Pulse Rate 68 82 91 H Respiratory Rate 16 16 16 Blood Pressure 120/54 L 126/61 126/59 L Pulse Oximetry 98 100 97 02/13/18 00:00 02/13/18 04:00 02/13/18 08:00 Temperature 99.3 F 98.3 F 98 F Pulse Rate 83 80 84 Respiratory Rate 16 16 16 Blood Pressure 135/72 125/58 L 130/86 Pulse Oximetry 98 97 99 Intake & Output 02/12/18 02/13/18 02/13/18 18:59 06:59 18:59 Intake Total 1100 / 1100 480 / 480 Output Total 300 / 300 Balance 1092 / 1092 180 / 180 Weight 95.6 kg Intake: Oral 1100 / 1100 480 / 480 Output: Urine 300 / 300 Chest Tube Drainage #3 Left Lower Other: # Voids 4 1 Date of Last Bowel Movement 02/12/18 02/12/18 # Bowel Movements 1 Narrative: CONSTITUTIONAL/GEN: Healthy-appearing, athletic male in no obvious distress. LUNGS: clear A-P, respiratory effort is normal. Dressing where chest tube was removed is clean/dry. CARDIOVASCULAR: RR without murmur or gallop. No significant edema. GI/ABD: Soft, mildly tender to palpation in the left quadrants without rebound or guarding. PSYCH/MENTAL STATUS: Alert and oriented x 3. Assessment and Plan - Assessment (1) Pneumothorax Code(s): J93.9 - Pneumothorax, unspecified Status: Acute Plan: Chest tube discontinued today by cardiothoracic Pulmonology following: -Continue supplemental oxygen to maintain O2 saturations above 92% -Duo nebs every 6 hours +2 hours as needed for shortness of breath Status post VATS procedure with apical bleb resection and mechanical/chemical pleurodesis Possible discharge later today or tomorrow depending on how patient feels Follow-up with pulmonology in 1 week with repeat chest x-ray Pain control with [place] as needed Hospital course: Spontaneous tension pneumothorax in a young healthy male s/p pigtail catheter placement with subsequent resolution of pneumothorax via repeat chest x-ray on 02/08. IR placed second chest tube on 02/09 due to recurrence of left-sided pneumothorax. S/p VATS procedure 02/11 w/bleb resection and pleurodesis, lung bx from procedure pending. (2) Nutrition, metabolism, and development symptoms Code(s): R63.8 - Other symptoms and signs concerning food and fluid intake Status: Acute Plan: Fluids: None Electrolytes: None Nutrition: Reg diet following procedure GI prophy: None (3) DVT prophylaxis Status: Acute Plan: None indicated, encourage ambulation - Assessment and Plan Dispel: Likely DC later today or tomorrow. Will need home health care for wound management from skin tears related to adhesive/tape from previous chest tubes (1) Pneumothorax Qualifiers: Pneumothorax type: unspecified pneumothorax Qualified Code(s): J93.9 - Pneumothorax, unspecified
--- NOTE | 2018-02-13 10:29 | P.DCO ---
- Home Health Nursing Order: Medical education, Wound care and dressing changes - Case Management Consult Yes - Certification I have seen patient Jeremias Reich III on 02/13/18. My clinical findings support the need for the requested home health care services because: Infection with risk of complications I certify that my clinical findings support that this patient is homebound because: Post-op weakness
[2018-02-14 08:11] VITALS: RESP 18
[2018-02-14] MEDS: Senna/Docusate Sodium 8.6/50 MG Tablet PO SCH (08:53)
[2018-02-14] MEDS: Polyethylene Glycol 3350 17 GM Packet PO SCH (08:53)
--- NOTE | 2018-02-14 09:24 | P.PNCV ---
- Note Subjective/Hospital Course: 17-year-old patient who is a [employer] student. 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 Apparently played a football game Thursday and then woke up Thursday morning with sharp left-sided chest pain, nonradiating, shortness of breath. Went to an urgent care where they sent him to the emergency department where he was found to have a left-sided pneumothorax. The patient underwent chest tube placement to the left lateral chest wall with interval resolution of the left-sided pneumothorax. The patient then underwent an x-ray this morning, which showed persistent unchanged left-sided pneumothorax despite 40 cm of suction. There was no midline shift. The patient had a second chest tube placed in the left apex with resolution of the pneumothorax. He also had a chest CT while undergoing the first chest tube placement. There was no evidence of mediastinal or hilar adenopathy. No evidence of focal thickening or pleural effusion. Small Left apical bleb 02/11 pt scheduled for left VATS, pleurodesis and bleb resection today surgery: 02/11 1. Left video-Assisted Thoracoscopic Surgery (VATS). 2. Apical Bleb resection 3. Mechanical and Talc Pleurodesis. 4. Intercostal Nerve Block 02/12 up in chair , on room air pain controlled additional GI motility meds ordered no BM since admission pulm toileting , nebs ezpap OOB ambulate leave chest tube in 02/13 Doing well DC chest tube today Okay to discharge following that from my standpoint 02/14 Doing well Continued left lower quadrant abdominal discomfort Had BM yesterday. Denies nausea vomiting or diarrhea Stable to discharge from pulmonary standpoint Objective: Vital Signs - 24 hr 02/13/18 11:00 02/13/18 12:00 02/13/18 12:56 Temperature 98.6 F Pulse Rate 82 80 84 Respiratory Rate 18 Blood Pressure 137/76 Pulse Oximetry 99 02/13/18 13:00 02/13/18 14:00 02/13/18 15:00 Temperature Pulse Rate 84 86 80 Respiratory Rate Blood Pressure Pulse Oximetry 02/13/18 15:05 02/13/18 16:00 02/13/18 17:00 Temperature 99.1 F Pulse Rate 81 74 82 Respiratory Rate 18 Blood Pressure 136/68 Pulse Oximetry 98 02/13/18 18:00 02/13/18 19:00 02/13/18 20:00 Temperature 99 F Pulse Rate 82 75 76 Respiratory Rate 16 Blood Pressure 133/66 Pulse Oximetry 100 02/13/18 21:00 02/13/18 22:00 02/13/18 23:00 Temperature 98.7 F Pulse Rate 86 74 70 Respiratory Rate 16 Blood Pressure 147/75 H Pulse Oximetry 99 02/14/18 00:00 02/14/18 01:00 02/14/18 02:00 Temperature Pulse Rate 70 79 83 Respiratory Rate Blood Pressure Pulse Oximetry 02/14/18 03:00 02/14/18 04:00 02/14/18 05:00 Temperature 99 F Pulse Rate 75 77 71 Respiratory Rate 16 Blood Pressure 130/60 Pulse Oximetry 99 02/14/18 06:00 02/14/18 07:00 02/14/18 08:00 Temperature 99.1 F Pulse Rate 71 68 70 Respiratory Rate 18 Blood Pressure 134/65 Pulse Oximetry 98 02/14/18 09:00 Temperature Pulse Rate 72 Respiratory Rate Blood Pressure Pulse Oximetry Result Diagrams: 02/10/18 23:37 02/10/18 23:37 - Plan (1) Pneumothorax (2) S/P thoracotomy Plan: nebs, ezpap , OOB ambulate leave chest tube in pain control skin tear dressings GI motility meds will need HHC for a couple visits 2/2 significant skin tear wounds (1) Pneumothorax Qualifiers: Pneumothorax type: unspecified pneumothorax Qualified Code(s): J93.9 - Pneumothorax, unspecified
[2018-02-14 15:20] VITALS: BP 132/68; TEMP 98.7; O2SAT 97
--- NOTE | 2018-02-14 16:34 | P.PNFP ---
Subjective Interval history: Patient seen and examined this morning. Patient notes that he remains constipated with mild abdominal cramping in the left lower quadrant. He otherwise has no complaints at this time. Denies chest pain, shortness of breath, fever, chills, nausea, vomiting, leg pain, or swelling. <ErynramoGrace - 02/14/18 16:34> Results - Labs Result diagrams: 02/10/18 23:37 02/10/18 23:37 <Amilcar Arvizu - 02/15/18 13:50> Physical Exam Vital signs: Vital Signs 02/14/18 14:00 02/14/18 15:00 02/14/18 16:00 Temperature 98.7 F Pulse Rate 76 78 78 Respiratory Rate 18 Blood Pressure 132/68 Pulse Oximetry 97 02/14/18 17:00 02/14/18 18:00 Temperature Pulse Rate 76 76 Respiratory Rate Blood Pressure Pulse Oximetry Intake & Output 02/14/18 02/15/18 02/15/18 18:59 06:59 18:59 Intake Total 1250 / 1250 Output Total 750 / 750 Balance 500 / 500 Intake: Oral 1250 / 1250 Output: Urine 750 / 750 Other: Date of Last Bowel Movement 02/14/18 # Bowel Movements 2 <Amilcar Arvizu - 02/15/18 13:50> Vital Signs 02/13/18 17:00 02/13/18 18:00 02/13/18 19:00 Temperature 99 F Pulse Rate 82 82 75 Respiratory Rate 16 Blood Pressure 133/66 Pulse Oximetry 100 02/13/18 20:00 02/13/18 21:00 02/13/18 22:00 Temperature Pulse Rate 76 86 74 Respiratory Rate Blood Pressure Pulse Oximetry 02/13/18 23:00 02/14/18 00:00 02/14/18 01:00 Temperature 98.7 F Pulse Rate 70 70 79 Respiratory Rate 16 Blood Pressure 147/75 H Pulse Oximetry 99 02/14/18 02:00 02/14/18 03:00 02/14/18 04:00 Temperature 99 F Pulse Rate 83 75 77 Respiratory Rate 16 Blood Pressure 130/60 Pulse Oximetry 99 02/14/18 05:00 02/14/18 06:00 02/14/18 07:00 Temperature 99.1 F Pulse Rate 71 71 68 Respiratory Rate 18 Blood Pressure 134/65 Pulse Oximetry 98 02/14/18 08:00 02/14/18 09:00 02/14/18 10:00 Temperature Pulse Rate 70 72 74 Respiratory Rate Blood Pressure Pulse Oximetry 02/14/18 11:00 02/14/18 12:00 02/14/18 13:00 Temperature 99.1 F Pulse Rate 76 74 72 Respiratory Rate 18 Blood Pressure 128/64 Pulse Oximetry 98 02/14/18 14:00 02/14/18 15:00 Temperature 98.7 F Pulse Rate 76 78 Respiratory Rate 18 Blood Pressure 132/68 Pulse Oximetry 97 Intake & Output 02/13/18 02/14/18 02/14/18 18:59 06:59 18:59 Intake Total 2149 / 214 900 / 900 Balance 2149 / 214 900 / 900 Weight 96.4 kg Intake: Oral 214 / 214 900 / 900 Other: # Voids 6 Date of Last Bowel Movement 02/13/18 02/14/18 <Grace Robison - 02/14/18 16:34> Narrative: CONSTITUTIONAL/GEN: Healthy-appearing, athletic male in no obvious distress. LUNGS: clear A-P, respiratory effort is normal. Dressing where chest tube was removed is clean/dry. CARDIOVASCULAR: RR without murmur or gallop. No significant edema. GI/ABD: Soft, mildly tender to palpation in the left lower quadrant without rebound or guarding. PSYCH/MENTAL STATUS: Alert and oriented x 3. <Grace Robison - 02/14/18 16:34> Assessment and Plan - Assessment (1) Pneumothorax Code(s): J93.9 - Pneumothorax, unspecified Status: Acute Plan: Chest tube discontinued yesterday by cardiothoracic surgery. Patient stable for discharge home. Pulmonology following: -Continue supplemental oxygen to maintain O2 saturations above 92% -Duo nebs every 6 hours +2 hours as needed for shortness of breath Status post VATS procedure with apical bleb resection and mechanical/chemical pleurodesis Possible discharge later today or tomorrow depending on how patient feels Follow-up with pulmonology in 1 week with repeat chest x-ray Pain control with Sasabe as needed Hospital course: Spontaneous tension pneumothorax in a young healthy male s/p pigtail catheter placement with subsequent resolution of pneumothorax via repeat chest x-ray on 02/08. IR placed second chest tube on 02/09 due to recurrence of left-sided pneumothorax. S/p VATS procedure 02/11 w/bleb resection and pleurodesis, lung bx from procedure pending. (2) Constipation Code(s): K59.00 - Constipation, unspecified Status: Acute Plan: Patient complaining of constipation causing mild LLQ pain and states that his last BM was prior to admission to the hospital, likely associated with pain medications he has received. He has been given MiraLAX, Annette-Colace and milk of magnesia throughout hospital stay. Plan for discharge following resolution of constipation today. (3) Nutrition, metabolism, and development symptoms Code(s): R63.8 - Other symptoms and signs concerning food and fluid intake Status: Acute Plan: Fluids: None Electrolytes: None Nutrition: Reg diet following procedure GI prophy: None (4) DVT prophylaxis Status: Acute Plan: None indicated, encourage ambulation <Grace Robison - 02/14/18 16:27> - Assessment and Plan See the residents documentation for details. I saw and evaluated the patient regarding the [place]go portions of this evaluation and agree with the residents findings and plans as written. Parts of this note were created using [employer] voice recognition software program. While efforts were made to correct any mistakes made by this software, some mistakes, errors, and omissions may remain in the final note that were not caught when the note was originally created. Plan of care was discussed and agreed upon with the patient as specifically documented in the above note. An opportunity to ask questions with explanation was provided. Patient voiced understanding on all information reviewed and discussed. <Amilcar Arvizu - 02/15/18 13:50> Dispel: Likely DC later today. Will need home health care for wound management from skin tears related to adhesive/tape from previous chest tubes <Grace Robison - 02/14/18 16:34> <Sung,Grace B - Last Filed: 02/14/18 16:27> (1) Pneumothorax Qualifiers: Pneumothorax type: unspecified pneumothorax Qualified Code(s): J93.9 - Pneumothorax, unspecified <Erynramo,Grace B - Last Filed: 02/14/18 16:27> (1) Pneumothorax Qualifiers: Pneumothorax type: unspecified pneumothorax Qualified Code(s): J93.9 - Pneumothorax, unspecified
[2018-02-14 17:16] VITALS: PULSE 76
--- NOTE | 2018-02-17 16:32 | P.DS ---
Date of admission: 02/08/18 12:43 Primary care physician: Blas Rosenthal III, MD Brief History from admission: 17-year-old male presenting to the emergency department for treatment of a spontaneous tension pneumothorax. He was in his usual state of health when he woke up this morning with a sharp pain in his left chest associated with shortness of breath. Pain was worse with inhaling deeply. 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 He denies any pain while playing football or hit that caused significant pain. He went to the athletic training room this morning complaining of the shortness of breath, a stat chest x-ray showed a spontaneous tension pneumothorax and he went to the emergency department for management. DS: Diagnosis - Discharge Diagnosis (1) Pneumothorax Status: Acute (2) Nutrition, metabolism, and development symptoms Status: Acute (3) DVT prophylaxis Status: Acute DS: Summary Hospital Course: In the ED, a 10 Irish pigtail catheter was placed in the lateral inferior midline of the chest wall w/interval resolution of left sided pneumothorax. X- ray afterwards showed persistent unchanged left-sided pneumothorax despite suction of [address] surg were consulted. There was no midline shift. The second chest tube was placed in the left apex w/resolution. CT of chest with placement of first tube showed no evidence of mediastinal or hilar adenopathy. CT surg was consulted, who decided to perform VATs procedure based on evaluation. An apical bled was noted and resected; mechanical and Talc pleurodesis were performed on 02/11. Skin wounds at place where dressing was were noted and [facility] was advised for taking care of this outpatient, along w/ wound care instructions from CT surgery team. Follow up was set up with PCP, pulmonology, and CT surgery. - Time Spent with Patient Total time spent providing and/or coordinating discharge services: Greater than 30 minutes - Quality: VTE Deep Vein Thrombosis/Pulmonary Embolism Present on Admission: No Exam Narrative: CONSTITUTIONAL/GEN: Healthy-appearingyoung male in no obvious distress LUNGS: respiratory effort is normal. Breath sounds heard bilaterally. Left- sided chest tubes in place, draining serosanguineous fluid. Chest tube is hooked up to wall suction. CARDIOVASCULAR: RR without murmur or gallop. GI/ABD: soft without masses, without organomegaly. PSYCH/MENTAL STATUS: Alert and oriented x 3. Results Procedures completed during hospitalization: VATS 02/11 Pending studies at discharge: Pending at discharge 02/11/18 07:22 Surgical [PTH] Routine - Impressions ITS Impressions Chest CT 02/09/18 00:00 CONCLUSION: Left apical pigtail thoracostomy tube in good position with minimal residual left pneumothorax and mild left lung atelectasis. Chest Tube Insertion 02/09/18 00:00 CONCLUSION: 1. Uncomplicated left chest tube placement as above. Chest X-Ray 02/12/18 14:56 CONCLUSION: No pneumothorax seen. Left chest tube stable in position. Discharge Plan - Discharge Disposition Patient Disposition: /Home Health Service - Discharge Condition Condition: Stable - Discharge Order Discharge Orders: Discharge Order (Routine); Ordered 02/14/18 Ordered By: Grace Robison - Discharge Details Anticipated Discharge Date: 02/14/18 Discharge Comment: OK to discharge after BM - Physicians Team Primary Care Provider: Blas Rosenthal III Attending Provider: Amilcar Arvizu Other Providers: Jason Woodward MD ; Lay Hampton MD ; [facility]
== END 2018-02-14 18:48 | disposition home health service (06) ==
LOC: NEPE 10:32 → NEDA 12:43 → N07 15:53 → HCPC 02-11 16:40
PROVIDERS: ADMIT Family Medicine; ATTEND Family Medicine